=== PATIENT | female | born 1965 | race Caucasian/White ===

== ENCOUNTER 2016-11-08 18:31 | Inpatient (IN) | payer MEDICARE, MEDICAID ==
[~2016-11-08] VITALS: Ht 160 cm; Wt 92.1 kg
[~2016-11-08 18:31] MED LIST: TRIL4 PO
[2016-11-08] MEDS ORDERED: QUEtiapine FUMARATE 100 MG TABLET PO PRN (19:00)
[2016-11-08] MEDS ORDERED: INFLUENZA VIRUS VACCINE QVS 2016-17 (3YR+)/PF 60 MCG/0.5 ML SYRINGE IM ONE (19:30)
[2016-11-08 20:00] VITALS: BP 141/82
[2016-11-08 20:18] VITALS: BP 126/83
[2016-11-08] MEDS: PERPHENAZINE 4 MG TABLET PO SCH (20:34)
[2016-11-08] MEDS: ZOLPIDEM TARTRATE 5 MG TABLET PO PRN (20:34)
[2016-11-08] MEDS: TraZODone HCL 100 MG TABLET PO SCH (21:37)
[2016-11-09 00:15] VITALS: BP 110/62
[2016-11-09 08:02] VITALS: BP 113/63
[2016-11-09] MEDS ORDERED: LOPERAMIDE HCL 2 MG CAPSULE PO PRN (08:15)
[2016-11-09] MEDS ORDERED: MAG HYDROX/AL HYDROX/SIMETH ES 30 ML SUSPENSION UDCUP PO PRN (08:15)
[2016-11-09] MEDS ORDERED: ACETAMINOPHEN 325 MG TABLET PO PRN (08:15)
[2016-11-09] MEDS ORDERED: ONDANSETRON HCL 4 MG TABLET PO PRN (08:15)
[2016-11-09] MEDS ORDERED: BACITRACIN 28.4 GM OINTMENT TP PRN (08:15)
[2016-11-09] MEDS ORDERED: BENZOCAINE/MENTHOL LOZENGE MM PRN (08:15)
[2016-11-09] MEDS ORDERED: MAGNESIUM HYDROXIDE SUSPENSION 30 ML UDCUP PO PRN (08:15)
[2016-11-09] MEDS ORDERED: PETROLATUM,WHITE 71 GM JELLY TP PRN (08:15)
[2016-11-09] MEDS ORDERED: CloNIDine HCL 0.1 MG TABLET PO PRN (08:15)
[2016-11-09] MEDS ORDERED: ALBUTEROL SULFATE HFA 90 MCG/PUFF 8 GM INHALER IH PRN (08:15)
[2016-11-09] MEDS: NICOTINE 21 MG/24 HOUR PATCH TD SCH (08:27)
[2016-11-09] MEDS: PERPHENAZINE 4 MG TABLET PO SCH (08:27)
[2016-11-09 09:00] LABS: BASOPHILS # (AUTO) 0.05 K/uL (0.00-0.20); BASOPHILS % (AUTO) 0.4 % (0.0-2.0); EOSINOPHILS # (AUTO) 0.42 K/uL (0.00-0.70); EOSINOPHILS % (AUTO) 3.87 % (1.0-6.0); HEMOGLOBIN 12.4 g/dL (12.0-16.0); LYMPHOCYTES # (AUTO) 3.4 K/uL (1.0-4.8); LYMPHOCYTES % (AUTO) 31.2 % (22.0-44.0); MEAN CORPUSCULAR HEMOGLOBIN 19.1 pg (26.0-34.0); MEAN CORPUSCULAR HGB CONC 31.7 G/dL (31.0-37.0); MEAN CORPUSCULAR VOLUME 60 fL (80-100); MONOCYTES # (AUTO) 0.8 K/uL (0.1-1.0); MONOCYTES % (AUTO) 6.9 % (2.0-9.0); NEUTROPHILS # (AUTO) 6.3 K/uL (1.8-7.7); NEUTROPHILS % (AUTO) 57.7 % (40.0-70.0); PLATELET COUNT (AUTO) 215 K/uL (150-450); RED BLOOD CELL COUNT(AUTO) 6.47 MIL/uL (4.00-5.20); RED CELL DISTRIBUTION WIDTH 16.1 % (11.5-14.5)
[2016-11-09 09:05] LABS: HEMOGLOBIN A1C 5.8 % (4.5-6.2)
[2016-11-09 09:39] LABS: ALANINE AMINOTRANSFERASE 25 U/L (12-78); ALBUMIN 4.2 g/dL (3.4-5.0); ANION GAP 9 mmol/L (8-16); ASPARTATE AMINOTRANSFERASE 13 U/L (15-37); BILIRUBIN,TOTAL 0.6 mg/dL (0.1-1.0); CARBON DIOXIDE 29 mmol/L (22-29); CHLORIDE 106 mmol/L (98-107); CHOL/HDL RATIO 4.4 (3.9-5.7); GLOMERULAR FILTR. RATE CALC > 60 mL/min (>60); POTASSIUM 4.6 mmol/L (3.5-5.1); SODIUM SERUM 144 mmol/L (136-145); THYROID STIMULATING HORMONE 1.21 uIU/mL (0.36-3.74); TOTAL PROTEIN, SERUM 6.4 g/dL (6.4-8.2); UREA NITROGEN, BLOOD 12 mg/dL (7-18)
[2016-11-09 09:52] LABS: RBC MORPHOLOGY COMMENT ABNORMAL RBC MORPH
[2016-11-09 16:17] VITALS: BP 113/75
[2016-11-09] MEDS: LORazepam 1 MG TABLET PO PRN (16:38)
[2016-11-09] MEDS: TraZODone HCL 100 MG TABLET PO SCH (20:17)
[2016-11-09] MEDS: PERPHENAZINE 8 MG TABLET PO SCH (20:17)
[2016-11-09] MEDS: ZOLPIDEM TARTRATE 5 MG TABLET PO PRN (20:57)
[2016-11-10 06:20] VITALS: BP 109/66
[2016-11-10] MEDS: LEVOTHYROXINE SODIUM 25 MCG TABLET PO SCH (06:30)
[2016-11-10 08:00] VITALS: BP 131/69
[2016-11-10] MEDS: FISH OIL/OMEGA-3 FATTY ACIDS 500 MG CAPSULE PO SCH (08:36)
[2016-11-10] MEDS: NICOTINE 21 MG/24 HOUR PATCH TD SCH (08:36)
[2016-11-10] MEDS: PERPHENAZINE 4 MG TABLET PO SCH (08:36)
[2016-11-10] MEDS: LORazepam 1 MG TABLET PO PRN ×2 (13:06→17:55)
[2016-11-10 16:01] VITALS: BP 126/86
[2016-11-10] MEDS: ZOLPIDEM TARTRATE 5 MG TABLET PO PRN (21:23)
[2016-11-10] MEDS: PERPHENAZINE 8 MG TABLET PO SCH (21:23)
[2016-11-10] MEDS: TraZODone HCL 100 MG TABLET PO SCH (21:23)
[2016-11-11 03:30] VITALS: BP 106/69
[2016-11-11] MEDS: IBUPROFEN 600 MG TABLET PO PRN ×2 (03:33→09:50)
[2016-11-11] MEDS: LEVOTHYROXINE SODIUM 25 MCG TABLET PO SCH (06:30)
[2016-11-11 08:34] VITALS: BP 124/81
[2016-11-11] MEDS: PERPHENAZINE 4 MG TABLET PO SCH (09:05)
[2016-11-11] MEDS: FISH OIL/OMEGA-3 FATTY ACIDS 500 MG CAPSULE PO SCH (09:05)
[2016-11-11] MEDS: NICOTINE 21 MG/24 HOUR PATCH TD SCH (09:05)
[2016-11-11] MEDS ORDERED: TRAZ-147 PO (09:18)
[2016-11-11] MEDS ORDERED: OMEG-12 PO (09:18)
[2016-11-11] MEDS ORDERED: LEVO25TA4 PO (09:18)
[2016-11-11] MEDS ORDERED: TRIL8 PO (09:18)
== END 2016-11-11 12:00 | disposition home or self-care (01) | DRG 885 ==
LOC: B2S 19:00 → EDSTATUS 19:02 → B2S 21:15
PROVIDERS: ADMIT Psychiatry & Neurology Psychiatry; ATTEND Psychiatry & Neurology Psychiatry
DX: F20.0 Paranoid schizophrenia (principal); R45.851 Suicidal ideations; R45.850 Homicidal ideations; E03.9 Hypothyroidism, unspecified; E66.9 Obesity, unspecified; J44.9 Chronic obstructive pulmonary disease, unspecified; E78.5 Hyperlipidemia, unspecified; F32.9 Major depressive disorder, single episode, unspecified; K59.00 Constipation, unspecified; G47.00 Insomnia, unspecified; F10.10 Alcohol abuse, uncomplicated; F17.210 Nicotine dependence, cigarettes, uncomplicated; Z78.0 Asymptomatic menopausal state; Z91.14 Patient's other noncompliance with medication regimen; Z28.21 Immunization not carried out because of patient refusal; Z68.36 Body mass index [BMI] 36.0-36.9, adult; Z88.0 Allergy status to penicillin; Z71.6 Tobacco abuse counseling
CPT/HCPCS: 83036; 84439; 84443

== ENCOUNTER 2017-03-21 09:15 | Emergency (ER) | payer MEDICARE, OTHER ==
[~2017-03-21] VITALS: Ht 160 cm; Wt 86.3 kg
[~2017-03-21 09:15] MED LIST changes: +LEVO25TA4 PO; +OMEG-12 PO; +TRAZ-147 PO; +TRIL8 PO
[2017-03-21 09:27] LABS: GLUCOSE,POINT OF CARE 111 MG/DL (70-110)
[2017-03-21 10:37] LABS: BASOPHILS # (AUTO) 0.06 K/uL (0.00-0.20); BASOPHILS % (AUTO) 0.6 % (0.0-2.0); EOSINOPHILS % (AUTO) 1.92 % (1.0-6.0); HEMOGLOBIN 11.9 g/dL (12.0-16.0); LYMPHOCYTES # (AUTO) 2.5 K/uL (1.0-4.8); LYMPHOCYTES % (AUTO) 24.3 % (22.0-44.0); MEAN CORPUSCULAR HEMOGLOBIN 19.5 pg (26.0-34.0); MEAN CORPUSCULAR HGB CONC 31.5 G/dL (31.0-37.0); MEAN CORPUSCULAR VOLUME 62 fL (80-100); MONOCYTES # (AUTO) 0.7 K/uL (0.1-1.0); MONOCYTES % (AUTO) 6.4 % (2.0-9.0); NEUTROPHILS # (AUTO) 6.9 K/uL (1.8-7.7); NEUTROPHILS % (AUTO) 66.9 % (40.0-70.0); PLATELET COUNT (AUTO) 172 K/uL (150-450); RED BLOOD CELL COUNT(AUTO) 6.12 MIL/uL (4.00-5.20); RED CELL DISTRIBUTION WIDTH 15.2 % (11.5-14.5); WHITE BLOOD COUNT (AUTO) 10.4 K/uL (4.5-11.0)
[2017-03-21 10:49] LABS: ANION GAP 9 mmol/L (8-16); CALCIUM, TOTAL 9.1 mg/dL (8.8-10.5); CARBON DIOXIDE 27 mmol/L (22-29); CHLORIDE 107 mmol/L (98-107); CREATININE 0.78 mg/dL (0.60-1.30); GLOMERULAR FILTR. RATE CALC > 60 mL/min (>60); POTASSIUM 3.7 mmol/L (3.5-5.1); SODIUM SERUM 143 mmol/L (136-145); UREA NITROGEN, BLOOD 5 mg/dL (7-18)
[2017-03-21 10:55] LABS: ALANINE AMINOTRANSFERASE 27 U/L (12-78); ALBUMIN 4.3 g/dL (3.4-5.0); ASPARTATE AMINOTRANSFERASE 18 U/L (15-37); TOTAL PROTEIN, SERUM 6.9 g/dL (6.4-8.2)
[2017-03-21 10:57] LABS: RBC MORPHOLOGY COMMENT ABNORMAL RBC MORPH
[2017-03-21 11:40] VITALS: BP 139/88
== END 2017-03-21 11:45 | disposition home or self-care (01) ==
LOC: EEVIPCON 09:18 → EMS 09:18
DX: F25.9 Schizoaffective disorder, unspecified (principal); E03.9 Hypothyroidism, unspecified; Z88.0 Allergy status to penicillin
CPT/HCPCS: 36415; 80053; 80307; 82962; 85025; 99284; G0480

== ENCOUNTER 2017-04-21 16:54 | Emergency (ER) | payer MEDICARE, MEDICAID ==
[~2017-04-21] VITALS: Ht 160 cm; Wt 84.1 kg
[2017-04-21 17:24] VITALS: BP 138/90
== END 2017-04-21 18:26 | disposition home or self-care (01) ==
LOC: EMS 16:56
DX: F41.9 Anxiety disorder, unspecified (principal); E03.9 Hypothyroidism, unspecified; F17.210 Nicotine dependence, cigarettes, uncomplicated; Z88.0 Allergy status to penicillin
CPT/HCPCS: 99284

== ENCOUNTER 2017-06-15 14:39 | Emergency (ER) | payer MEDICARE, MEDICAID ==
[~2017-06-15] VITALS: Ht 160 cm; Wt 88.6 kg
[~2017-06-15 14:39] MED LIST changes: -LEVO25TA4 PO; -OMEG-12 PO; +PALI234D IM; +PALI6 PO; -TRAZ-147 PO; +TRAZ150 PO; -TRIL4 PO; -TRIL8 PO
[2017-06-15 14:41] VITALS: BP 140/86
== END 2017-06-15 16:25 | disposition left against medical advice (07) ==
LOC: EMS 14:47
DX: J02.9 Acute pharyngitis, unspecified (principal); Z53.21 Procedure and treatment not carried out due to patient leaving prior to being seen by health care provider

== ENCOUNTER 2017-06-19 06:49 | Emergency (ER) | payer MEDICARE, OTHER ==
[~2017-06-19] VITALS: Ht 160 cm; Wt 84.1 kg
[2017-06-19 07:28] LABS: INFLUENZA TYPE B NEGATIVE FOR TYPE B (NEGATIVE)
[2017-06-19 08:08] VITALS: BP 123/78
== END 2017-06-19 08:23 | disposition home or self-care (01) ==
LOC: EMS 06:51
DX: J06.9 Acute upper respiratory infection, unspecified (principal); B30.9 Viral conjunctivitis, unspecified; I10 Essential (primary) hypertension; E03.9 Hypothyroidism, unspecified; F17.210 Nicotine dependence, cigarettes, uncomplicated; Z88.0 Allergy status to penicillin
CPT/HCPCS: 87804; 99284; 99406

== ENCOUNTER 2017-12-09 18:26 | Emergency (ER) | payer MEDICARE, MEDICAID ==
[~2017-12-09] VITALS: Ht 160 cm; Wt 86.4 kg
[2017-12-09 18:29] VITALS: BP 148/85
[2017-12-09 18:38] LABS: GLUCOSE,POINT OF CARE 137 MG/DL (70-110)
== END 2017-12-09 19:55 | disposition left against medical advice (07) ==
LOC: EMS 18:28
DX: T40.991A Poisoning by other psychodysleptics [hallucinogens], accidental (unintentional), initial encounter (principal); E03.9 Hypothyroidism, unspecified; F17.210 Nicotine dependence, cigarettes, uncomplicated; Z53.21 Procedure and treatment not carried out due to patient leaving prior to being seen by health care provider; Y92.098 Other place in other non-institutional residence as the place of occurrence of the external cause
CPT/HCPCS: 82962

== ENCOUNTER 2017-12-16 20:17 | Emergency (ER) | payer MEDICARE, OTHER ==
[~2017-12-16] VITALS: Ht 160 cm; Wt 81.8 kg
[~2017-12-16 20:17] MED LIST changes: -PALI6 PO
[2017-12-16 20:22] VITALS: BP 118/76
[2017-12-16] MEDS ORDERED: BUSP5TAB20 PO (20:27)
[2017-12-16] MEDS ORDERED: LEVO88TA7 PO (20:27)
[2017-12-16 21:05] LABS: BASOPHILS % (AUTO) 1.1 % (0.0-2.0); EOSINOPHILS % (AUTO) 1.6 % (1.0-6.0); HEMATOCRIT 38.5 % (36-46); HEMOGLOBIN 12.4 g/dL (12.0-16.0); LYMPHOCYTES # (AUTO) 3.2 K/uL (1.0-4.8); LYMPHOCYTES % (AUTO) 24.8 % (22.0-44.0); MEAN CORPUSCULAR HEMOGLOBIN 18.8 pg (26.0-34.0); MEAN CORPUSCULAR HGB CONC 32.2 G/dL (31.0-37.0); MEAN CORPUSCULAR VOLUME 58 fL (80-100); NEUTROPHILS # (AUTO) 8.4 K/uL (1.8-7.7); NEUTROPHILS % (AUTO) 64.5 % (40.0-70.0); PLATELET COUNT (AUTO) 231 K/uL (150-450); RED BLOOD CELL COUNT(AUTO) 6.59 MIL/uL (4.00-5.20); RED CELL DISTRIBUTION WIDTH 16.3 % (11.5-14.5)
[2017-12-16] MEDS ORDERED: HALOPERIDOL 5 MG TABLET PO ONE (21:15)
[2017-12-16 21:19] LABS: AMPHET/METH SCREEN,URINE NEGATIVE (NEGATIVE); BARBITURATE SCREEN, URINE NEGATIVE (NEGATIVE); BENZODIAZEPINES SCREEN,URINE NEGATIVE (NEGATIVE); CANNABINOID SCREEN,URINE NEGATIVE (NEGATIVE); COCAINE SCREEN,URINE NEGATIVE (NEGATIVE); METHADONE SCREEN, URINE NEGATIVE (NEGATIVE); OPIATE SCREEN,URINE NEGATIVE (NEGATIVE)
[2017-12-16 21:21] LABS: PHENCYCLIDINE SCREEN,URINE NEGATIVE (NEGATIVE)
[2017-12-16 21:41] LABS: ANION GAP 7 mmol/L (8-16); CALCIUM, TOTAL 9.1 mg/dL (8.8-10.5); CARBON DIOXIDE 30 mmol/L (22-29); CHLORIDE 105 mmol/L (98-107); CREATININE 0.79 mg/dL (0.60-1.30); GLOMERULAR FILTR. RATE CALC > 60 mL/min (>60); GLUCOSE,RANDOM 122 mg/dL (70-110); SODIUM SERUM 142 mmol/L (136-145); UREA NITROGEN, BLOOD 9 mg/dL (7-18)
[2017-12-16 21:48] LABS: ALANINE AMINOTRANSFERASE 54 U/L (12-78); ALBUMIN 4.6 g/dL (3.4-5.0); ALKALINE PHOSPHATASE 94 U/L (46-116); ASPARTATE AMINOTRANSFERASE 25 U/L (15-37); BILIRUBIN,TOTAL 0.7 mg/dL (0.1-1.0); TOTAL PROTEIN, SERUM 7.3 g/dL (6.4-8.2)
== END 2017-12-16 21:59 | disposition home or self-care (01) ==
LOC: EMS 20:20
DX: F20.9 Schizophrenia, unspecified (principal); F41.9 Anxiety disorder, unspecified; E03.9 Hypothyroidism, unspecified; F17.210 Nicotine dependence, cigarettes, uncomplicated; Z88.0 Allergy status to penicillin
CPT/HCPCS: 36415; 80053; 80307; 85025; 99284; G0480

== ENCOUNTER 2018-01-01 14:32 | Inpatient (IN) | payer MEDICARE, MEDICAID ==
[~2018-01-01] VITALS: Ht 160 cm; Wt 87.5 kg
[~2018-01-01 14:32] MED LIST changes: +BUSP5TAB20 PO; +LEVO88TA7 PO; -PALI234D IM; -TRAZ150 PO
[2018-01-01 15:02] LABS: BASOPHILS % (AUTO) 0.8 % (0.0-2.0); EOSINOPHILS % (AUTO) 0.9 % (1.0-6.0); HEMATOCRIT 40.2 % (36-46); HEMOGLOBIN 13.2 g/dL (12.0-16.0); LYMPHOCYTES # (AUTO) 2.7 K/uL (1.0-4.8); LYMPHOCYTES % (AUTO) 19.9 % (22.0-44.0); MEAN CORPUSCULAR HEMOGLOBIN 19.1 pg (26.0-34.0); MEAN CORPUSCULAR HGB CONC 32.8 G/dL (31.0-37.0); MEAN CORPUSCULAR VOLUME 58 fL (80-100); MONOCYTES # (AUTO) 0.9 K/uL (0.1-1.0); MONOCYTES % (AUTO) 6.9 % (2.0-9.0); NEUTROPHILS # (AUTO) 9.6 K/uL (1.8-7.7); NEUTROPHILS % (AUTO) 71.5 % (40.0-70.0); PLATELET COUNT (AUTO) 234 K/uL (150-450); RED BLOOD CELL COUNT(AUTO) 6.89 MIL/uL (4.00-5.20); RED CELL DISTRIBUTION WIDTH 16.4 % (11.5-14.5)
[2018-01-01 15:14] LABS: ANION GAP 10 mmol/L (8-16); CALCIUM, TOTAL 9.4 mg/dL (8.8-10.5); CARBON DIOXIDE 28 mmol/L (22-29); CHLORIDE 102 mmol/L (98-107); CREATININE 0.87 mg/dL (0.60-1.30); GLOMERULAR FILTR. RATE CALC > 60 mL/min (>60); GLUCOSE,RANDOM 132 mg/dL (70-110); POTASSIUM 4.1 mmol/L (3.5-5.1); SODIUM SERUM 140 mmol/L (136-145); UREA NITROGEN, BLOOD 11 mg/dL (7-18)
[2018-01-01 15:19] LABS: ALANINE AMINOTRANSFERASE 63 U/L (12-78); ALBUMIN 4.8 g/dL (3.4-5.0); ALKALINE PHOSPHATASE 97 U/L (46-116); ASPARTATE AMINOTRANSFERASE 30 U/L (15-37); BILIRUBIN,TOTAL 1.1 mg/dL (0.1-1.0); TOTAL PROTEIN, SERUM 7.7 g/dL (6.4-8.2)
[2018-01-01 15:23] LABS: PLATELET MORPHOLOGY COMMENT GIANT PLTS PRESENT
[2018-01-01] MEDS ORDERED: MIRT15 PO (15:24)
[2018-01-01] MEDS ORDERED: TRAZ-147 PO (15:24)
[2018-01-01] MEDS ORDERED: OLAN5TAB2 PO (15:24)
[2018-01-01 16:27] LABS: THYROID STIMULATING HORMONE 0.75 uIU/mL (0.36-3.74)
[2018-01-01] MEDS ORDERED: HALOPERIDOL 5 MG TABLET PO PRN (17:00)
[2018-01-01] MEDS ORDERED: ZOLPIDEM TARTRATE 10 MG TABLET PO PRN (17:00)
[2018-01-01 17:59] LABS: CHOL/HDL RATIO 3.9 (3.9-5.7); CHOLESTEROL 140 mg/dL (131-200); FREE T4 (FREE THYROXINE) 1.16 ng/dL (0.76-1.46); HDL CHOLESTEROL 36 mg/dL (40-60); LDL CHOL (CALC.) 62 mg/dL (0-130); TRIGLYCERIDES 208 mg/dL (15-150)
[2018-01-01 18:28] VITALS: BP 137/79
[2018-01-02] MEDS: LEVOTHYROXINE SODIUM 88 MCG TABLET PO SCH (06:30)
[2018-01-02 06:41] VITALS: BP 135/74
[2018-01-02 08:14] VITALS: BP 127/78
[2018-01-02] MEDS: LORazepam 2 MG TABLET PO PRN ×2 (09:18→20:44)
[2018-01-02] MEDS: OLANZapine 5 MG TABLET PO SCH ×2 (09:30→20:47)
[2018-01-02] MEDS ORDERED: CloNIDine HCL 0.1 MG TABLET PO PRN (09:45)
[2018-01-02] MEDS ORDERED: LOPERAMIDE HCL 2 MG CAPSULE PO PRN (09:45)
[2018-01-02] MEDS ORDERED: ACETAMINOPHEN 325 MG TABLET PO PRN (09:45)
[2018-01-02] MEDS ORDERED: PETROLATUM,WHITE 71 GM JELLY TP PRN (09:45)
[2018-01-02] MEDS ORDERED: IBUPROFEN 600 MG TABLET PO PRN (09:45)
[2018-01-02] MEDS ORDERED: BACITRACIN 28.4 GM OINTMENT TP PRN (09:45)
[2018-01-02] MEDS ORDERED: BENZOCAINE/MENTHOL LOZENGE MM PRN (09:45)
[2018-01-02] MEDS ORDERED: ONDANSETRON HCL 4 MG TABLET PO PRN (09:45)
[2018-01-02] MEDS ORDERED: ALBUTEROL SULFATE HFA 90 MCG/PUFF 8 GM INHALER IH PRN (09:45)
[2018-01-02] MEDS ORDERED: MAG HYDROX/AL HYDROX/SIMETH ES 30 ML SUSPENSION UDCUP PO PRN (09:45)
[2018-01-02] MEDS ORDERED: MAGNESIUM HYDROXIDE SUSPENSION 30 ML UDCUP PO PRN (09:45)
[2018-01-02] MEDS: TraZODone HCL 100 MG TABLET PO SCH ×2 (13:00→17:00)
[2018-01-02 16:15] VITALS: BP 132/88
[2018-01-02] MEDS: MIRTAZAPINE 15 MG TABLET PO SCH (20:47)
[2018-01-03 04:12] VITALS: BP 123/76
[2018-01-03] MEDS: LEVOTHYROXINE SODIUM 88 MCG TABLET PO SCH (06:30)
[2018-01-03 08:17] VITALS: BP 121/68
[2018-01-03 08:40] LABS: % IRON SATURATION 21.3 % (22-44)
[2018-01-03] MEDS: OMEGA-3/DHA/EPA/FISH OIL 1,000 MG CAPSULE PO SCH (09:00)
[2018-01-03] MEDS: DOCUSATE SODIUM 100 MG CAPSULE PO SCH (09:00)
[2018-01-03] MEDS: TraZODone HCL 100 MG TABLET PO SCH ×3 (09:00→17:00)
[2018-01-03] MEDS: OMEPRAZOLE 20 MG CAPSULE PO SCH (09:00)
[2018-01-03] MEDS: OLANZapine 5 MG TABLET PO SCH ×2 (09:04→21:00)
[2018-01-03 16:33] VITALS: BP 141/76
[2018-01-03] MEDS: LORazepam 2 MG TABLET PO PRN (18:48)
[2018-01-03] MEDS: MIRTAZAPINE 15 MG TABLET PO SCH (21:00)
[2018-01-04 01:45] VITALS: BP 138/90
[2018-01-04] MEDS: LEVOTHYROXINE SODIUM 88 MCG TABLET PO SCH (06:30)
[2018-01-04] MEDS: OMEPRAZOLE 20 MG CAPSULE PO SCH (09:00)
[2018-01-04] MEDS: TraZODone HCL 100 MG TABLET PO SCH ×3 (09:00→17:00)
[2018-01-04] MEDS: DOCUSATE SODIUM 100 MG CAPSULE PO SCH (09:00)
[2018-01-04] MEDS: OMEGA-3/DHA/EPA/FISH OIL 1,000 MG CAPSULE PO SCH (09:00)
[2018-01-04] MEDS: OLANZapine 5 MG TABLET PO SCH ×2 (09:11→21:00)
[2018-01-04 16:30] VITALS: BP 146/86
[2018-01-04] MEDS: MIRTAZAPINE 15 MG TABLET PO SCH (21:12)
[2018-01-05] MEDS: LORazepam 2 MG TABLET PO PRN (01:24)
[2018-01-05 01:25] VITALS: BP 126/83
[2018-01-05] MEDS: LEVOTHYROXINE SODIUM 88 MCG TABLET PO SCH ×2 (06:06→06:18)
[2018-01-05 08:23] VITALS: BP 123/83
[2018-01-05] MEDS: OMEPRAZOLE 20 MG CAPSULE PO SCH (09:00)
[2018-01-05] MEDS: OLANZapine 5 MG TABLET PO SCH ×3 (09:00→21:00)
[2018-01-05] MEDS: DOCUSATE SODIUM 100 MG CAPSULE PO SCH (09:00)
[2018-01-05] MEDS: OMEGA-3/DHA/EPA/FISH OIL 1,000 MG CAPSULE PO SCH (09:00)
[2018-01-05] MEDS: TraZODone HCL 100 MG TABLET PO SCH ×3 (09:00→16:28)
[2018-01-05 16:05] VITALS: BP 129/84
[2018-01-05] MEDS: MIRTAZAPINE 15 MG TABLET PO SCH (21:00)
[2018-01-06 00:30] VITALS: BP 121/73
[2018-01-06] MEDS: LORazepam 2 MG TABLET PO PRN (00:32)
[2018-01-06] MEDS: LEVOTHYROXINE SODIUM 88 MCG TABLET PO SCH (06:34)
[2018-01-06] MEDS ORDERED: OLAN5TAB27 PO (08:33)
[2018-01-06] MEDS ORDERED: TRAZ-147 PO (08:33)
[2018-01-06] MEDS ORDERED: MIRT15 PO (08:33)
[2018-01-06 08:41] VITALS: BP 128/79
[2018-01-06] MEDS: TraZODone HCL 100 MG TABLET PO SCH ×2 (09:00→12:19)
[2018-01-06] MEDS ORDERED: OMEP20 PO (09:28)
[2018-01-06] MEDS ORDERED: DSS100 PO (09:28)
[2018-01-06] MEDS ORDERED: OMEG-135 PO (09:28)
[2018-01-06] MEDS: OMEPRAZOLE 20 MG CAPSULE PO SCH (09:36)
[2018-01-06] MEDS: OMEGA-3/DHA/EPA/FISH OIL 1,000 MG CAPSULE PO SCH (09:37)
[2018-01-06] MEDS: DOCUSATE SODIUM 100 MG CAPSULE PO SCH (09:37)
[2018-01-06] MEDS: OLANZapine 5 MG TABLET PO SCH (09:38)
== END 2018-01-06 13:10 | disposition home or self-care (01) | DRG 885 ==
LOC: EMS 14:34 → B3A 17:03
DX: F25.0 Schizoaffective disorder, bipolar type (principal); F79 Unspecified intellectual disabilities; D72.829 Elevated white blood cell count, unspecified; E03.9 Hypothyroidism, unspecified; J44.9 Chronic obstructive pulmonary disease, unspecified; E66.9 Obesity, unspecified; R45.1 Restlessness and agitation; F41.9 Anxiety disorder, unspecified; G47.00 Insomnia, unspecified; K21.9 Gastro-esophageal reflux disease without esophagitis; K59.00 Constipation, unspecified; F17.210 Nicotine dependence, cigarettes, uncomplicated; Z88.0 Allergy status to penicillin; Z79.899 Other long term (current) drug therapy; Z91.5 Personal history of self-harm; Z68.34 Body mass index [BMI] 34.0-34.9, adult
CPT/HCPCS: 82306; 83540; 83550; 84439; 84443; 99285; 99406; G0480

== ENCOUNTER 2018-04-02 01:35 | Inpatient (IN) | payer MEDICARE, MEDICAID ==
[~2018-04-02] VITALS: Ht 160 cm; Wt 72.7 kg
[~2018-04-02 01:35] MED LIST changes: -BUSP5TAB20 PO; +DSS100 PO; +MIRT15 PO; +OLAN5TAB27 PO; +OMEG-135 PO; +OMEP20 PO; +TRAZ-220 PO
[2018-04-02] MEDS ORDERED: CARI1.5C PO (01:51)
[2018-04-02 02:30] LABS: BASOPHILS % (AUTO) 0.8 % (0.0-2.0); EOSINOPHILS % (AUTO) 2.2 % (1.0-6.0); HEMATOCRIT 39.9 % (36-46); HEMOGLOBIN 13.1 g/dL (12.0-16.0); LYMPHOCYTES % (AUTO) 19.3 % (22.0-44.0); MEAN CORPUSCULAR HEMOGLOBIN 19.2 pg (26.0-34.0); MEAN CORPUSCULAR HGB CONC 32.9 G/dL (31.0-37.0); MEAN CORPUSCULAR VOLUME 59 fL (80-100); MONOCYTES # (AUTO) 1.1 K/uL (0.1-1.0); MONOCYTES % (AUTO) 7.1 % (2.0-9.0); NEUTROPHILS % (AUTO) 70.6 % (40.0-70.0); PLATELET COUNT (AUTO) 203 K/uL (150-450); RED BLOOD CELL COUNT(AUTO) 6.83 MIL/uL (4.00-5.20); RED CELL DISTRIBUTION WIDTH 15.5 % (11.5-14.5)
[2018-04-02 02:38] LABS: ANION GAP 9 mmol/L (8-16); CALCIUM, TOTAL 9.3 mg/dL (8.8-10.5); CARBON DIOXIDE 28 mmol/L (22-29); CHLORIDE 105 mmol/L (98-107); CREATININE 0.75 mg/dL (0.60-1.30); GLOMERULAR FILTR. RATE CALC > 60 mL/min (>60); GLUCOSE,RANDOM 113 mg/dL (70-110); POTASSIUM 3.8 mmol/L (3.5-5.1); SODIUM SERUM 142 mmol/L (136-145); UREA NITROGEN, BLOOD 8 mg/dL (7-18)
[2018-04-02 02:44] LABS: AMPHET/METH SCREEN,URINE NEGATIVE (NEGATIVE); BARBITURATE SCREEN, URINE NEGATIVE (NEGATIVE); BENZODIAZEPINES SCREEN,URINE NEGATIVE (NEGATIVE); CANNABINOID SCREEN,URINE NEGATIVE (NEGATIVE); COCAINE SCREEN,URINE NEGATIVE (NEGATIVE); METHADONE SCREEN, URINE NEGATIVE (NEGATIVE); OPIATE SCREEN,URINE NEGATIVE (NEGATIVE)
[2018-04-02 02:45] LABS: ALANINE AMINOTRANSFERASE 29 U/L (12-78); ALBUMIN 4.3 g/dL (3.4-5.0); ALKALINE PHOSPHATASE 99 U/L (46-116); ASPARTATE AMINOTRANSFERASE 16 U/L (15-37); BILIRUBIN,TOTAL 0.6 mg/dL (0.1-1.0); TOTAL PROTEIN, SERUM 6.9 g/dL (6.4-8.2)
[2018-04-02 02:53] LABS: PHENCYCLIDINE SCREEN,URINE NEGATIVE (NEGATIVE)
[2018-04-02 03:19] LABS: PLATELET MORPHOLOGY COMMENT GIANT PLTS PRESENT
[2018-04-02] MEDS ORDERED: PNEUMOCOCCAL VACCINE POLYVALENT 0.5 ML VIAL [PPSV23] IM ONE (05:30)
[2018-04-02 06:04] VITALS: BP 132/85
[2018-04-02] MEDS ORDERED: DOCUSATE SODIUM 100 MG CAPSULE PO PRN (07:00)
[2018-04-02] MEDS ORDERED: IBUPROFEN 400 MG TABLET PO PRN (07:00)
[2018-04-02] MEDS ORDERED: ALBUTEROL SULFATE HFA 90 MCG/PUFF 8 GM INHALER IH PRN (07:00)
[2018-04-02] MEDS ORDERED: LOPERAMIDE HCL 2 MG CAPSULE PO PRN (07:00)
[2018-04-02] MEDS ORDERED: PETROLATUM,WHITE 71 GM JELLY TP PRN (07:00)
[2018-04-02] MEDS ORDERED: ONDANSETRON HCL 4 MG TABLET PO PRN (07:00)
[2018-04-02] MEDS ORDERED: ACETAMINOPHEN 325 MG TABLET PO PRN (07:00)
[2018-04-02] MEDS ORDERED: MAGNESIUM HYDROXIDE SUSPENSION 30 ML UDCUP PO PRN (07:00)
[2018-04-02] MEDS ORDERED: CloNIDine HCL 0.1 MG TABLET PO PRN (07:00)
[2018-04-02] MEDS ORDERED: MAG HYDROX/AL HYDROX/SIMETH ES 30 ML SUSPENSION UDCUP PO PRN (07:00)
[2018-04-02 08:24] VITALS: BP 121/72
[2018-04-02] MEDS: NICOTINE 14 MG/24 HOUR PATCH TD SCH (09:00)
[2018-04-02 16:00] VITALS: BP 138/73
[2018-04-02] MEDS: OLANZapine 7.5 MG TABLET PO SCH (16:33)
[2018-04-02] MEDS: MIRTAZAPINE 30 MG TABLET PO SCH (20:31)
[2018-04-02] MEDS ORDERED: TraZODone HCL 100 MG TABLET PO SCH (21:00)
[2018-04-03 01:53] VITALS: BP 124/83
[2018-04-03 08:08] VITALS: BP 114/66
[2018-04-03 08:28] LABS: HEMOGLOBIN A1C 5.7 % (4.5-6.2)
[2018-04-03] MEDS: OLANZapine 7.5 MG TABLET PO SCH ×2 (08:39→16:32)
[2018-04-03] MEDS: NICOTINE 14 MG/24 HOUR PATCH TD SCH (08:40)
[2018-04-03 08:50] LABS: CHOL/HDL RATIO 4.3 (3.9-5.7); FREE T4 (FREE THYROXINE) 1.06 ng/dL (0.76-1.46); THYROID STIMULATING HORMONE 1.21 uIU/mL (0.36-3.74)
[2018-04-03] MEDS ORDERED: DiphenhydrAMINE HCL 50 MG/ML VIAL IM ONE (10:45)
[2018-04-03] MEDS ORDERED: LORazepam 2 MG/ML VIAL IM ONE (10:45)
[2018-04-03] MEDS ORDERED: HALOPERIDOL LACTATE 5 MG/ML VIAL IM ONE (10:45)
[2018-04-03] MEDS ORDERED: HALOPERIDOL LACTATE 5 MG/ML VIAL ONE (10:47)
[2018-04-03] MEDS ORDERED: DiphenhydrAMINE HCL 50 MG/ML VIAL ONE (10:47)
[2018-04-03 11:45] VITALS: BP 116/71
[2018-04-03 16:45] VITALS: BP 104/64
[2018-04-03] MEDS: MIRTAZAPINE 30 MG TABLET PO SCH (20:51)
[2018-04-03] MEDS: TraZODone HCL 50 MG TABLET PO SCH (20:51)
[2018-04-04 06:09] VITALS: BP 120/79
[2018-04-04] MEDS: OLANZapine 7.5 MG TABLET PO SCH ×2 (08:18→16:32)
[2018-04-04] MEDS: NICOTINE 14 MG/24 HOUR PATCH TD SCH (08:21)
[2018-04-04 08:26] VITALS: BP 122/78
[2018-04-04] MEDS: HALOPERIDOL 5 MG TABLET PO PRN (11:19)
[2018-04-04] MEDS: LORazepam 2 MG TABLET PO PRN (11:19)
[2018-04-04 16:19] VITALS: BP 102/60
[2018-04-04] MEDS: MIRTAZAPINE 30 MG TABLET PO SCH (20:30)
[2018-04-04] MEDS: TraZODone HCL 50 MG TABLET PO SCH (20:30)
[2018-04-05 05:57] VITALS: BP 131/77
[2018-04-05 08:12] VITALS: BP 110/68
[2018-04-05] MEDS: NICOTINE 14 MG/24 HOUR PATCH TD SCH (09:00)
[2018-04-05] MEDS: OLANZapine 7.5 MG TABLET PO SCH (09:18)
[2018-04-05 16:13] VITALS: BP 136/76
[2018-04-05] MEDS: OLANZapine 10 MG TABLET PO SCH (17:09)
[2018-04-05] MEDS: LORazepam 2 MG TABLET PO PRN (17:14)
[2018-04-05] MEDS: HALOPERIDOL 5 MG TABLET PO PRN (20:25)
[2018-04-05] MEDS: MIRTAZAPINE 30 MG TABLET PO SCH (20:25)
[2018-04-05] MEDS: TraZODone HCL 50 MG TABLET PO SCH (20:25)
[2018-04-05] MEDS: ZOLPIDEM TARTRATE 10 MG TABLET PO PRN (20:25)
[2018-04-06 05:22] VITALS: BP 138/85
[2018-04-06 08:00] VITALS: BP 125/67
[2018-04-06] MEDS: OLANZapine 10 MG TABLET PO SCH ×2 (08:13→17:00)
[2018-04-06] MEDS: NICOTINE 14 MG/24 HOUR PATCH TD SCH (08:19)
[2018-04-06 16:05] VITALS: BP 108/66
[2018-04-06] MEDS: TraZODone HCL 50 MG TABLET PO SCH (20:47)
[2018-04-06] MEDS: MIRTAZAPINE 30 MG TABLET PO SCH (20:47)
[2018-04-07] MEDS: ZOLPIDEM TARTRATE 10 MG TABLET PO PRN (00:07)
[2018-04-07 06:27] VITALS: BP 114/80
[2018-04-07 08:19] VITALS: BP 119/66
[2018-04-07] MEDS: OLANZapine 10 MG TABLET PO SCH (08:19)
[2018-04-07] MEDS: NICOTINE 14 MG/24 HOUR PATCH TD SCH (08:21)
[2018-04-07 08:53] LABS: BASOPHILS % (AUTO) 0.6 % (0.0-2.0); EOSINOPHILS % (AUTO) 2.4 % (1.0-6.0); HEMATOCRIT 40.9 % (36-46); LYMPHOCYTES # (AUTO) 3.1 K/uL (1.0-4.8); LYMPHOCYTES % (AUTO) 26.8 % (22.0-44.0); MEAN CORPUSCULAR HGB CONC 31.9 G/dL (31.0-37.0); MEAN CORPUSCULAR VOLUME 60 fL (80-100); MONOCYTES # (AUTO) 0.9 K/uL (0.1-1.0); MONOCYTES % (AUTO) 7.5 % (2.0-9.0); NEUTROPHILS # (AUTO) 7.3 K/uL (1.8-7.7); NEUTROPHILS % (AUTO) 62.7 % (40.0-70.0); PLATELET COUNT (AUTO) 209 K/uL (150-450); RED BLOOD CELL COUNT(AUTO) 6.85 MIL/uL (4.00-5.20); RED CELL DISTRIBUTION WIDTH 15.8 % (11.5-14.5)
[2018-04-07 09:31] LABS: ANION GAP 8 mmol/L (8-16); CALCIUM, TOTAL 9.3 mg/dL (8.8-10.5); CARBON DIOXIDE 29 mmol/L (22-29); CHLORIDE 106 mmol/L (98-107); CREATININE 0.61 mg/dL (0.60-1.30); GLOMERULAR FILTR. RATE CALC > 60 mL/min (>60); GLUCOSE,RANDOM 95 mg/dL (70-110); POTASSIUM 4.5 mmol/L (3.5-5.1); SODIUM SERUM 143 mmol/L (136-145); UREA NITROGEN, BLOOD 13 mg/dL (7-18)
[2018-04-07] MEDS: LORazepam 2 MG TABLET PO PRN ×2 (13:27→17:59)
[2018-04-07 16:09] VITALS: BP 118/80
[2018-04-07] MEDS: ZIPRASIDONE HCL 40 MG CAPSULE PO SCH (16:32)
[2018-04-07] MEDS: TraZODone HCL 50 MG TABLET PO SCH (20:35)
[2018-04-07] MEDS: MIRTAZAPINE 30 MG TABLET PO SCH (20:35)
[2018-04-08] MEDS: ZIPRASIDONE HCL 40 MG CAPSULE PO SCH ×2 (06:13→16:54)
[2018-04-08 06:32] VITALS: BP 122/82
[2018-04-08 08:21] VITALS: BP 117/69
[2018-04-08] MEDS: NICOTINE 14 MG/24 HOUR PATCH TD SCH (09:00)
[2018-04-08 16:05] VITALS: BP 100/67
[2018-04-08] MEDS: TraZODone HCL 50 MG TABLET PO SCH (20:09)
[2018-04-08] MEDS: MIRTAZAPINE 30 MG TABLET PO SCH (20:09)
[2018-04-09 03:10] VITALS: BP 122/84
[2018-04-09] MEDS: LORazepam 2 MG TABLET PO PRN ×2 (03:16→13:51)
[2018-04-09] MEDS: ZIPRASIDONE HCL 40 MG CAPSULE PO SCH ×2 (06:58→17:00)
[2018-04-09 08:22] VITALS: BP 109/66
[2018-04-09] MEDS: NICOTINE 14 MG/24 HOUR PATCH TD SCH (09:00)
[2018-04-09] MEDS ORDERED: LORazepam 2 MG/ML VIAL ONE (14:18)
[2018-04-09] MEDS ORDERED: HALOPERIDOL LACTATE 5 MG/ML VIAL ONE (14:19)
[2018-04-09] MEDS ORDERED: DiphenhydrAMINE HCL 50 MG/ML VIAL ONE (14:19)
[2018-04-09] MEDS ORDERED: LORazepam 2 MG/ML VIAL IM ONE (14:30)
[2018-04-09] MEDS ORDERED: HALOPERIDOL LACTATE 5 MG/ML VIAL IM ONE (14:30)
[2018-04-09] MEDS ORDERED: DiphenhydrAMINE HCL 50 MG/ML VIAL IM ONE (14:30)
[2018-04-09 15:00] VITALS: BP 120/80
[2018-04-09] MEDS: TraZODone HCL 50 MG TABLET PO SCH (20:19)
[2018-04-09] MEDS: MIRTAZAPINE 30 MG TABLET PO SCH (20:24)
[2018-04-10 02:30] VITALS: BP 105/69
[2018-04-10] MEDS: ZIPRASIDONE HCL 40 MG CAPSULE PO SCH ×2 (07:08→16:31)
[2018-04-10 08:12] LABS: BASOPHILS % (AUTO) 0.8 % (0.0-2.0); HEMATOCRIT 40.8 % (36-46); HEMOGLOBIN 12.9 g/dL (12.0-16.0); LYMPHOCYTES # (AUTO) 3.3 K/uL (1.0-4.8); LYMPHOCYTES % (AUTO) 27.3 % (22.0-44.0); MEAN CORPUSCULAR HGB CONC 31.6 G/dL (31.0-37.0); MEAN CORPUSCULAR VOLUME 60 fL (80-100); MONOCYTES % (AUTO) 7.9 % (2.0-9.0); NEUTROPHILS # (AUTO) 7.4 K/uL (1.8-7.7); PLATELET COUNT (AUTO) 194 K/uL (150-450); RED CELL DISTRIBUTION WIDTH 15.9 % (11.5-14.5)
[2018-04-10 08:41] VITALS: BP 103/59
[2018-04-10] MEDS: LORazepam 2 MG TABLET PO PRN ×2 (09:33→16:50)
[2018-04-10] MEDS: NICOTINE 14 MG/24 HOUR PATCH TD SCH (09:33)
[2018-04-10 16:12] VITALS: BP 132/80
[2018-04-10] MEDS: TraZODone HCL 50 MG TABLET PO SCH (20:41)
[2018-04-10] MEDS: MIRTAZAPINE 30 MG TABLET PO SCH (20:41)
[2018-04-11] MEDS: ZIPRASIDONE HCL 40 MG CAPSULE PO SCH ×2 (06:07→17:03)
[2018-04-11 06:44] VITALS: BP 120/79
[2018-04-11 08:11] VITALS: BP 115/65
[2018-04-11] MEDS: NICOTINE 14 MG/24 HOUR PATCH TD SCH (09:00)
[2018-04-11 16:03] VITALS: BP 121/64
[2018-04-11] MEDS: MIRTAZAPINE 30 MG TABLET PO SCH (20:30)
[2018-04-11] MEDS: TraZODone HCL 50 MG TABLET PO SCH (20:30)
[2018-04-12 02:56] VITALS: BP 137/82
[2018-04-12] MEDS: ZIPRASIDONE HCL 40 MG CAPSULE PO SCH (06:04)
[2018-04-12] MEDS: NICOTINE 14 MG/24 HOUR PATCH TD SCH (08:10)
[2018-04-12 08:30] VITALS: BP 122/74
[2018-04-12 08:31] LABS: BASOPHILS % (AUTO) 0.9 % (0.0-2.0); EOSINOPHILS % (AUTO) 3.5 % (1.0-6.0); HEMATOCRIT 40.3 % (36-46); HEMOGLOBIN 12.8 g/dL (12.0-16.0); LYMPHOCYTES # (AUTO) 3.3 K/uL (1.0-4.8); LYMPHOCYTES % (AUTO) 30.1 % (22.0-44.0); MEAN CORPUSCULAR HEMOGLOBIN 19.1 pg (26.0-34.0); MEAN CORPUSCULAR HGB CONC 31.7 G/dL (31.0-37.0); MEAN CORPUSCULAR VOLUME 60 fL (80-100); MONOCYTES # (AUTO) 0.8 K/uL (0.1-1.0); MONOCYTES % (AUTO) 6.9 % (2.0-9.0); NEUTROPHILS # (AUTO) 6.4 K/uL (1.8-7.7); NEUTROPHILS % (AUTO) 58.6 % (40.0-70.0); PLATELET COUNT (AUTO) 201 K/uL (150-450); RED BLOOD CELL COUNT(AUTO) 6.69 MIL/uL (4.00-5.20); RED CELL DISTRIBUTION WIDTH 15.4 % (11.5-14.5)
[2018-04-12 09:20] LABS: PLATELET MORPHOLOGY COMMENT LARGE PLTS PRESENT
[2018-04-12 16:03] VITALS: BP 138/79
[2018-04-12] MEDS: ZIPRASIDONE HCL 60 MG CAPSULE PO SCH (16:33)
[2018-04-12] MEDS: LORazepam 2 MG TABLET PO PRN (17:23)
[2018-04-12] MEDS: MIRTAZAPINE 30 MG TABLET PO SCH (20:40)
[2018-04-12] MEDS: TraZODone HCL 50 MG TABLET PO SCH (20:40)
[2018-04-13 02:30] VITALS: BP 122/72
[2018-04-13] MEDS: ZIPRASIDONE HCL 60 MG CAPSULE PO SCH ×3 (06:49→16:52)
[2018-04-13 08:07] VITALS: BP 145/64
[2018-04-13] MEDS: NICOTINE 14 MG/24 HOUR PATCH TD SCH (08:47)
[2018-04-13 16:01] VITALS: BP 130/72
[2018-04-13] MEDS: LORazepam 2 MG TABLET PO PRN (18:49)
[2018-04-13] MEDS: TraZODone HCL 50 MG TABLET PO SCH (20:37)
[2018-04-13] MEDS: ZOLPIDEM TARTRATE 10 MG TABLET PO PRN (23:00)
[2018-04-14 08:22] VITALS: BP 100/60
[2018-04-14] MEDS ORDERED: OLANZapine 5 MG TABLET PO SCH (09:00)
[2018-04-14] MEDS: NICOTINE 14 MG/24 HOUR PATCH TD SCH (09:00)
[2018-04-14] MEDS: LORazepam 2 MG TABLET PO PRN (12:19)
[2018-04-14 16:03] VITALS: BP 120/78
[2018-04-14] MEDS: OLANZapine 10 MG TABLET PO SCH (16:59)
[2018-04-14] MEDS ORDERED: OLANZapine 10 MG TABLET PO SCH (17:00)
[2018-04-14] MEDS: TraZODone HCL 50 MG TABLET PO SCH (20:31)
[2018-04-15 01:21] VITALS: BP 116/76
[2018-04-15 08:25] VITALS: BP 114/68
[2018-04-15] MEDS: NICOTINE 14 MG/24 HOUR PATCH TD SCH (08:38)
[2018-04-15] MEDS: OLANZapine 10 MG TABLET PO SCH (08:43)
[2018-04-15] MEDS ORDERED: OLANZapine 10 MG TABLET PO SCH (09:00)
[2018-04-15 16:11] VITALS: BP 130/76
[2018-04-15] MEDS: OLANZapine 5 MG TABLET PO SCH (16:32)
[2018-04-15] MEDS: LORazepam 2 MG TABLET PO PRN (20:18)
[2018-04-15] MEDS: TraZODone HCL 50 MG TABLET PO SCH (20:39)
[2018-04-16 00:05] VITALS: BP 112/81
[2018-04-16] MEDS: LORazepam 2 MG TABLET PO PRN (02:25)
[2018-04-16] MEDS: HALOPERIDOL 5 MG TABLET PO PRN (02:26)
[2018-04-16 08:24] VITALS: BP 104/67
[2018-04-16] MEDS: OLANZapine 5 MG TABLET PO SCH ×2 (08:50→16:04)
[2018-04-16] MEDS: NICOTINE 14 MG/24 HOUR PATCH TD SCH (08:50)
[2018-04-16 16:01] VITALS: BP 101/85
[2018-04-16] MEDS: TraZODone HCL 50 MG TABLET PO SCH (20:06)
[2018-04-16] MEDS ORDERED: TRAZ-219 PO (21:34)
[2018-04-16] MEDS ORDERED: OLAN5TAB2 PO (21:34)
[2018-04-17 05:21] VITALS: BP 122/70
[2018-04-17 08:08] VITALS: BP 111/67
[2018-04-17] MEDS: OLANZapine 5 MG TABLET PO SCH (08:30)
[2018-04-17] MEDS: NICOTINE 14 MG/24 HOUR PATCH TD SCH (08:31)
== END 2018-04-17 10:00 | disposition home or self-care (01) | DRG 885 ==
LOC: EMS 01:36 → B2X 04:00
PROVIDERS: ADMIT Psychiatry & Neurology Psychiatry; ATTEND Psychiatry & Neurology Psychiatry
DX: F25.0 Schizoaffective disorder, bipolar type (principal); R45.851 Suicidal ideations; Z28.21 Immunization not carried out because of patient refusal; Z88.0 Allergy status to penicillin; Z91.19 Patient's noncompliance with other medical treatment and regimen; Z91.5 Personal history of self-harm; K59.00 Constipation, unspecified; K21.9 Gastro-esophageal reflux disease without esophagitis; F41.9 Anxiety disorder, unspecified; F17.200 Nicotine dependence, unspecified, uncomplicated; E03.9 Hypothyroidism, unspecified; D72.829 Elevated white blood cell count, unspecified; Z71.6 Tobacco abuse counseling; F60.9 Personality disorder, unspecified; Z79.899 Other long term (current) drug therapy
CPT/HCPCS: 83036; 84439; 84443; 99285; G0480; J1200; J1630; J2060

== ENCOUNTER 2018-04-25 01:40 | Emergency (ER) | payer MEDICARE, MEDICAID ==
[~2018-04-25 01:40] MED LIST changes: -DSS100 PO; -LEVO88TA7 PO; -MIRT15 PO; +OLAN5TAB2 PO; -OLAN5TAB27 PO; -OMEG-135 PO; -OMEP20 PO; +TRAZ-219 PO; -TRAZ-220 PO
== END 2018-04-25 02:42 | disposition left against medical advice (07) ==
LOC: EMS 01:40
DX: Z00.00 Encounter for general adult medical examination without abnormal findings (principal); Z53.21 Procedure and treatment not carried out due to patient leaving prior to being seen by health care provider

== ENCOUNTER 2018-05-31 21:47 | Inpatient (IN) | payer MEDICARE, MEDICAID ==
[~2018-05-31] VITALS: Ht 160 cm; Wt 66.2 kg
[2018-06-01] MEDS ORDERED: ZOLPIDEM TARTRATE 10 MG TABLET PO PRN
[2018-06-01] MEDS ORDERED: HALOPERIDOL 5 MG TABLET PO PRN
[2018-06-01 00:05] VITALS: BP 140/75
[2018-06-01] MEDS ORDERED: PNEUMOCOCCAL VACCINE POLYVALENT 0.5 ML VIAL [PPSV23] IM ONE (00:15)
[2018-06-01] MEDS: LORazepam 2 MG TABLET PO PRN ×2 (00:30→21:36)
[2018-06-01 08:18] VITALS: BP 127/79
[2018-06-01 08:46] LABS: BASOPHILS % (AUTO) 1.1 % (0.0-2.0); EOSINOPHILS % (AUTO) 4.6 % (1.0-6.0); HEMATOCRIT 37.4 % (36-46); HEMOGLOBIN 11.8 g/dL (12.0-16.0); LYMPHOCYTES # (AUTO) 3.9 K/uL (1.0-4.8); LYMPHOCYTES % (AUTO) 36.7 % (22.0-44.0); MEAN CORPUSCULAR HEMOGLOBIN 19.4 pg (26.0-34.0); MEAN CORPUSCULAR HGB CONC 31.7 G/dL (31.0-37.0); MEAN CORPUSCULAR VOLUME 61 fL (80-100); MONOCYTES # (AUTO) 0.9 K/uL (0.1-1.0); NEUTROPHILS # (AUTO) 5.3 K/uL (1.8-7.7); NEUTROPHILS % (AUTO) 49.6 % (40.0-70.0); PLATELET COUNT (AUTO) 200 K/uL (150-450); RED BLOOD CELL COUNT(AUTO) 6.12 MIL/uL (4.00-5.20); RED CELL DISTRIBUTION WIDTH 17.2 % (11.5-14.5)
[2018-06-01 08:49] LABS: HEMOGLOBIN A1C 5.4 % (4.5-6.2)
[2018-06-01 09:22] LABS: ALANINE AMINOTRANSFERASE 20 U/L (12-78); ALBUMIN 3.6 g/dL (3.4-5.0); ALKALINE PHOSPHATASE 85 U/L (46-116); ANION GAP 7 mmol/L (8-16); ASPARTATE AMINOTRANSFERASE 12 U/L (15-37); BILIRUBIN,TOTAL 0.5 mg/dL (0.1-1.0); CALCIUM, TOTAL 8.7 mg/dL (8.8-10.5); CARBON DIOXIDE 28 mmol/L (22-29); CHLORIDE 109 mmol/L (98-107); CREATININE 0.73 mg/dL (0.60-1.30); FREE T4 (FREE THYROXINE) 0.99 ng/dL (0.76-1.46); GLOMERULAR FILTR. RATE CALC > 60 mL/min (>60); GLUCOSE,RANDOM 83 mg/dL (70-110); HDL CHOLESTEROL 34 mg/dL (40-60); POTASSIUM 3.8 mmol/L (3.5-5.1); SODIUM SERUM 144 mmol/L (136-145); THYROID STIMULATING HORMONE 1.55 uIU/mL (0.36-3.74); TRIGLYCERIDES 104 mg/dL (15-150); UREA NITROGEN, BLOOD 10 mg/dL (7-18)
[2018-06-01 09:44] LABS: CHOL/HDL RATIO 3.1 (3.9-5.7); CHOLESTEROL 105 mg/dL (131-200); LDL CHOL (CALC.) 50 mg/dL (0-130)
[2018-06-01 10:18] LABS: PLATELET MORPHOLOGY COMMENT LARGE PLTS PRESENT
[2018-06-01] MEDS ORDERED: LOPERAMIDE HCL 2 MG CAPSULE PO PRN (13:45)
[2018-06-01] MEDS ORDERED: ACETAMINOPHEN 325 MG TABLET PO PRN (13:45)
[2018-06-01] MEDS ORDERED: ALBUTEROL SULFATE HFA 90 MCG/PUFF 8 GM INHALER IH PRN (13:45)
[2018-06-01] MEDS ORDERED: PETROLATUM,WHITE 71 GM JELLY TP PRN (13:45)
[2018-06-01] MEDS ORDERED: MAG HYDROX/AL HYDROX/SIMETH ES 30 ML SUSPENSION UDCUP PO PRN (13:45)
[2018-06-01] MEDS ORDERED: CloNIDine HCL 0.1 MG TABLET PO PRN (13:45)
[2018-06-01] MEDS ORDERED: ONDANSETRON HCL 4 MG TABLET PO PRN (13:45)
[2018-06-01] MEDS ORDERED: MAGNESIUM HYDROXIDE SUSPENSION 30 ML UDCUP PO PRN (13:45)
[2018-06-01] MEDS ORDERED: GuaiFENesin/D-METHORPHAN [SUGAR-FREE] 200-20MG/10 ML SYRUP UDCUP PO PRN (13:45)
[2018-06-01] MEDS ORDERED: DOCUSATE SODIUM 100 MG CAPSULE PO PRN (13:45)
[2018-06-01] MEDS ORDERED: IBUPROFEN 400 MG TABLET PO PRN (13:45)
[2018-06-01] MEDS ORDERED: NICOTINE 14 MG/24 HOUR PATCH TD PRN (13:45)
[2018-06-01 16:05] VITALS: BP 118/82
[2018-06-01] MEDS ORDERED: TraZODone HCL 50 MG TABLET PO PRN (17:45)
[2018-06-02 06:34] VITALS: BP 108/64
[2018-06-02] MEDS: LORazepam 2 MG TABLET PO PRN ×2 (08:34→14:45)
[2018-06-02] MEDS ORDERED: OLANZapine 5 MG TABLET PO SCH (09:00)
[2018-06-02] MEDS ORDERED: ARIPiprazole 10 MG TABLET PO SCH (09:00)
[2018-06-02 09:05] VITALS: BP 126/82
[2018-06-02 09:07] VITALS: BP 128/62
[2018-06-02 16:09] VITALS: BP 121/84
[2018-06-02] MEDS: TraZODone HCL 50 MG TABLET PO SCH (20:29)
[2018-06-03] VITALS: BP 140/75
[2018-06-03] MEDS: LORazepam 2 MG TABLET PO PRN ×4 (00:07→20:41)
[2018-06-03] MEDS: ARIPiprazole 15 MG TABLET PO SCH (08:18)
[2018-06-03 08:26] VITALS: BP 138/81
[2018-06-03 16:32] VITALS: BP 120/58
[2018-06-03] MEDS: TraZODone HCL 50 MG TABLET PO SCH (20:12)
[2018-06-03 20:40] VITALS: BP 123/63
[2018-06-04 02:21] VITALS: BP 132/82
[2018-06-04] MEDS ORDERED: LORazepam 2 MG/ML VIAL ONE (05:51)
[2018-06-04 06:00] VITALS: BP 138/80
[2018-06-04] MEDS ORDERED: LORazepam 2 MG/ML VIAL IM ONE (06:00)
[2018-06-04] MEDS ORDERED: DiphenhydrAMINE HCL 50 MG/ML VIAL IM ONE (06:00)
[2018-06-04 06:30] VITALS: BP 102/65
[2018-06-04] MEDS: ARIPiprazole 15 MG TABLET PO SCH (08:36)
[2018-06-04 08:52] VITALS: BP 102/71
[2018-06-04] MEDS: TraZODone HCL 50 MG TABLET PO SCH (21:00)
[2018-06-05 00:55] VITALS: BP 120/81
[2018-06-05 08:37] VITALS: BP 102/64
[2018-06-05] MEDS: ARIPiprazole 15 MG TABLET PO SCH (08:37)
[2018-06-05] MEDS ORDERED: ARIPiprazole 5 MG TABLET PO ONE (11:00)
[2018-06-05 16:07] VITALS: BP 112/73
[2018-06-05] MEDS: TraZODone HCL 50 MG TABLET PO SCH (20:32)
[2018-06-05] MEDS: LORazepam 2 MG TABLET PO PRN (22:23)
[2018-06-06 03:57] VITALS: BP 110/70
[2018-06-06 08:33] VITALS: BP 110/68
[2018-06-06] MEDS: ARIPiprazole 15 MG TABLET PO SCH (08:56)
[2018-06-06 16:22] VITALS: BP 108/62
[2018-06-06] MEDS: LORazepam 2 MG TABLET PO PRN (17:25)
[2018-06-06] MEDS: TraZODone HCL 50 MG TABLET PO SCH (20:40)
[2018-06-07 04:20] VITALS: BP 110/68
[2018-06-07 08:16] VITALS: BP 109/75
[2018-06-07] MEDS: ARIPiprazole 15 MG TABLET PO SCH (09:13)
[2018-06-07] MEDS: FERROUS SULFATE 325 MG EC TABLET PO SCH ×2 (11:30→16:38)
[2018-06-07] MEDS ORDERED: ARIPiprazole LAUROXIL ER SUSPENSION 882 MG/3.2 ML SYRINGE IM SCH (12:00)
[2018-06-07 16:12] VITALS: BP 124/81
[2018-06-07] MEDS ORDERED: ARIP882S IM (17:01)
[2018-06-07] MEDS ORDERED: ARIP15TA2 PO (17:01)
[2018-06-07] MEDS ORDERED: TRAZ-219 PO (17:01)
== END 2018-06-07 17:35 | disposition home or self-care (01) | DRG 885 ==
LOC: B2X 23:51
PROVIDERS: ADMIT Psychiatry & Neurology Psychiatry; ATTEND Psychiatry & Neurology Psychiatry
DX: F25.0 Schizoaffective disorder, bipolar type (principal); I42.9 Cardiomyopathy, unspecified; R45.851 Suicidal ideations; D64.9 Anemia, unspecified; E03.9 Hypothyroidism, unspecified; E78.5 Hyperlipidemia, unspecified; F17.200 Nicotine dependence, unspecified, uncomplicated; F41.9 Anxiety disorder, unspecified; I10 Essential (primary) hypertension; J44.9 Chronic obstructive pulmonary disease, unspecified; F19.10 Other psychoactive substance abuse, uncomplicated; K21.9 Gastro-esophageal reflux disease without esophagitis; R45.84 Anhedonia; Z28.21 Immunization not carried out because of patient refusal; Z91.19 Patient's noncompliance with other medical treatment and regimen; Z91.5 Personal history of self-harm; Z71.6 Tobacco abuse counseling; Z71.51 Drug abuse counseling and surveillance of drug abuser; Z56.0 Unemployment, unspecified
CPT/HCPCS: 83036; 84439; 84443; J1200; J2060; J3230

== ENCOUNTER 2018-06-17 01:22 | Emergency (ER) | payer MEDICARE, OTHER ==
[~2018-06-17] VITALS: Ht 165.1 cm; Wt 59.1 kg
[~2018-06-17 01:22] MED LIST changes: +ARIP15TA2 PO; +ARIP882S IM; -OLAN5TAB2 PO
[2018-06-17 01:55] VITALS: BP 120/86
[2018-06-17] MEDS ORDERED: ONDANSETRON HCL 4 MG TABLET PO ONE (02:00)
== END 2018-06-17 02:53 | disposition home or self-care (01) ==
LOC: EMS 01:22
DX: F25.0 Schizoaffective disorder, bipolar type (principal); F17.210 Nicotine dependence, cigarettes, uncomplicated; F41.9 Anxiety disorder, unspecified; E03.9 Hypothyroidism, unspecified; Z88.0 Allergy status to penicillin; Z79.899 Other long term (current) drug therapy
CPT/HCPCS: 99284; Q0162

== ENCOUNTER 2018-06-17 12:26 | Emergency (ER) | payer MEDICARE, OTHER | END 2018-06-17 12:51 | disposition left against medical advice (07) | LOC: EMS 12:28 | DX: R10.9 Unspecified abdominal pain (principal); Z53.21 Procedure and treatment not carried out due to patient leaving prior to being seen by health care provider ==

== ENCOUNTER 2018-06-17 17:13 | Inpatient (IN) | payer MEDICARE, MEDICAID ==
[~2018-06-17] VITALS: Ht 160 cm; Wt 67.8 kg
[2018-08-15 16:52] VITALS: BP 126/91
[2018-08-15] MEDS ORDERED: QUEtiapine FUMARATE 100 MG TABLET PO PRN (17:00)
[2018-08-15] MEDS ORDERED: PERPHENAZINE 4 MG TABLET PO SCH (18:07)
[2018-08-15] MEDS ORDERED: CloNIDine HCL 0.1 MG TABLET PO PRN (18:15)
[2018-08-15] MEDS ORDERED: MAG HYDROX/AL HYDROX/SIMETH ES 30 ML SUSPENSION UDCUP PO PRN (18:15)
[2018-08-15] MEDS ORDERED: NICOTINE 14 MG/24 HOUR PATCH TD PRN (18:15)
[2018-08-15] MEDS ORDERED: GuaiFENesin/D-METHORPHAN [SUGAR-FREE] 200-20MG/10 ML SYRUP UDCUP PO PRN (18:15)
[2018-08-15] MEDS ORDERED: IBUPROFEN 400 MG TABLET PO PRN (18:15)
[2018-08-15] MEDS ORDERED: PETROLATUM,WHITE 71 GM JELLY TP PRN (18:15)
[2018-08-15] MEDS ORDERED: MAGNESIUM HYDROXIDE SUSPENSION 30 ML UDCUP PO PRN (18:15)
[2018-08-15] MEDS ORDERED: ACETAMINOPHEN 325 MG TABLET PO PRN (18:15)
[2018-08-15] MEDS ORDERED: DOCUSATE SODIUM 100 MG CAPSULE PO PRN (18:15)
[2018-08-15] MEDS ORDERED: LOPERAMIDE HCL 2 MG CAPSULE PO PRN (18:15)
[2018-08-15] MEDS ORDERED: ONDANSETRON HCL 4 MG TABLET PO PRN (18:15)
[2018-08-15] MEDS ORDERED: ALBUTEROL SULFATE HFA 90 MCG/PUFF 8 GM INHALER IH PRN (18:15)
[2018-08-15] MEDS ORDERED: PNEUMOCOCCAL VACCINE POLYVALENT 0.5 ML VIAL [PPSV23] IM ONE (18:15)
[2018-08-15] MEDS: LORazepam 1 MG TABLET PO PRN (20:40)
[2018-08-15] MEDS ORDERED: ZOLPIDEM TARTRATE 5 MG TABLET PO PRN (21:00)
[2018-08-15] MEDS: PERPHENAZINE 4 MG TABLET PO SCH (21:00)
[2018-08-15] MEDS: ZOLPIDEM TARTRATE 5 MG TABLET PO PRN (22:41)
[2018-08-16 05:05] VITALS: BP 120/81
[2018-08-16] MEDS: PERPHENAZINE 4 MG TABLET PO SCH ×3 (08:38→21:17)
[2018-08-16 08:52] LABS: BASOPHILS % (AUTO) 1.2 % (0.0-2.0); EOSINOPHILS % (AUTO) 3.6 % (1.0-6.0); HEMATOCRIT 40.2 % (36-46); HEMOGLOBIN 12.9 g/dL (12.0-16.0); LYMPHOCYTES # (AUTO) 2.7 K/uL (1.0-4.8); LYMPHOCYTES % (AUTO) 29.9 % (22.0-44.0); MEAN CORPUSCULAR HGB CONC 32.2 G/dL (31.0-37.0); MEAN CORPUSCULAR VOLUME 62 fL (80-100); MONOCYTES # (AUTO) 0.8 K/uL (0.1-1.0); NEUTROPHILS % (AUTO) 56.3 % (40.0-70.0); PLATELET COUNT (AUTO) 180 K/uL (150-450); RED BLOOD CELL COUNT(AUTO) 6.48 MIL/uL (4.00-5.20); RED CELL DISTRIBUTION WIDTH 15.7 % (11.5-14.5)
[2018-08-16 09:18] LABS: HEMOGLOBIN A1C 5.3 % (4.5-6.2)
[2018-08-16 09:32] LABS: ALANINE AMINOTRANSFERASE 23 U/L (12-78); ALBUMIN 3.7 g/dL (3.4-5.0); ALKALINE PHOSPHATASE 92 U/L (46-116); ANION GAP 6 mmol/L (8-16); ASPARTATE AMINOTRANSFERASE 16 U/L (15-37); BILIRUBIN,TOTAL 0.8 mg/dL (0.1-1.0); CALCIUM, TOTAL 8.3 mg/dL (8.8-10.5); CARBON DIOXIDE 29 mmol/L (22-29); CHLORIDE 105 mmol/L (98-107); CHOL/HDL RATIO 2.7 (3.9-5.7); CHOLESTEROL 107 mg/dL (131-200); CREATININE 0.59 mg/dL (0.60-1.30); GLOMERULAR FILTR. RATE CALC > 60 mL/min (>60); GLUCOSE,RANDOM 79 mg/dL (70-110); HDL CHOLESTEROL 39 mg/dL (40-60); LDL CHOL (CALC.) 54 mg/dL (0-130); POTASSIUM 4.2 mmol/L (3.5-5.1); SODIUM SERUM 140 mmol/L (136-145); THYROID STIMULATING HORMONE 1.35 uIU/mL (0.36-3.74); TOTAL PROTEIN, SERUM 6.1 g/dL (6.4-8.2); TRIGLYCERIDES 71 mg/dL (15-150); UREA NITROGEN, BLOOD 11 mg/dL (7-18)
[2018-08-16] MEDS ORDERED: GuaiFENesin/D-METHORPHAN [SUGAR-FREE] 200-20MG/10 ML SYRUP UDCUP PO PRN (11:45)
[2018-08-16] MEDS ORDERED: HydrOXYzine PAMOATE 50 MG CAPSULE PO PRN (11:45)
[2018-08-16 16:06] VITALS: BP 112/67
[2018-08-16] MEDS: THIAMINE HCL 100 MG TABLET PO SCH (16:54)
[2018-08-16] MEDS: LORazepam 1 MG TABLET PO PRN (17:14)
[2018-08-17 06:35] VITALS: BP 112/82
[2018-08-17] MEDS: PERPHENAZINE 4 MG TABLET PO SCH ×3 (08:09→20:22)
[2018-08-17] MEDS: THIAMINE HCL 100 MG TABLET PO SCH ×2 (08:10→16:02)
[2018-08-17] MEDS: MULTIVITAMINS WITH MINERALS, THERAPEUTIC TABLET PO SCH (08:10)
[2018-08-17] MEDS: FOLIC ACID 1 MG TABLET PO SCH ×2 (08:10→08:11)
[2018-08-17] MEDS: NALTREXONE HCL 50 MG TABLET PO SCH (08:11)
[2018-08-17 09:00] VITALS: BP 129/62
[2018-08-17] MEDS: LORazepam 1 MG TABLET PO PRN ×2 (10:40→16:01)
[2018-08-17 16:38] VITALS: BP 135/72
[2018-08-18] MEDS: LORazepam 1 MG TABLET PO PRN (00:04)
[2018-08-18] MEDS: ZOLPIDEM TARTRATE 5 MG TABLET PO PRN (00:04)
[2018-08-18 06:28] VITALS: BP 126/80
[2018-08-18 08:13] VITALS: BP 122/72
[2018-08-18] MEDS: FOLIC ACID 1 MG TABLET PO SCH ×2 (08:47→09:00)
[2018-08-18] MEDS: THIAMINE HCL 100 MG TABLET PO SCH ×2 (08:47→16:04)
[2018-08-18] MEDS: PERPHENAZINE 4 MG TABLET PO SCH ×2 (08:48→16:04)
[2018-08-18] MEDS: NALTREXONE HCL 50 MG TABLET PO SCH (08:52)
[2018-08-18] MEDS: MULTIVITAMINS WITH MINERALS, THERAPEUTIC TABLET PO SCH (08:52)
[2018-08-18 09:39] LABS: APPEARANCE,URINE CLEAR (CLEAR); BILIRUBIN,URINE NEGATIVE (NEGATIVE); GLUCOSE, URINE (UA) NEGATIVE (NEGATIVE); KETONES,URINE NEGATIVE (NEGATIVE); LEUKOCYTE ESTERASE ,URINE NEGATIVE (NEGATIVE); NITRATE,URINE NEGATIVE (NEGATIVE); OCCULT BLOOD,URINE NEGATIVE (NEGATIVE); PH,URINE 6.5 (5.0-8.0); PROTEIN,URINE NEGATIVE (NEGATIVE)
[2018-08-18 09:54] LABS: AMPHET/METH SCREEN,URINE NEGATIVE (NEGATIVE); BARBITURATE SCREEN, URINE NEGATIVE (NEGATIVE); BENZODIAZEPINES SCREEN,URINE NEGATIVE (NEGATIVE); CANNABINOID SCREEN,URINE NEGATIVE (NEGATIVE); COCAINE SCREEN,URINE NEGATIVE (NEGATIVE); METHADONE SCREEN, URINE NEGATIVE (NEGATIVE); OPIATE SCREEN,URINE NEGATIVE (NEGATIVE)
[2018-08-18 09:56] LABS: PHENCYCLIDINE SCREEN,URINE NEGATIVE (NEGATIVE)
[2018-08-18] MEDS ORDERED: TRIL4 PO ×2 (15:13→16:04)
[2018-08-18] MEDS ORDERED: NALT50TA PO (15:13)
[2018-08-18 16:00] VITALS: BP 120/82
[2018-08-18] MEDS ORDERED: MULT-1239 PO (16:04)
[2018-08-18] MEDS ORDERED: THIA100T67 PO (16:04)
[2018-08-18] MEDS ORDERED: FOLI1 PO (16:04)
[2018-08-18] MEDS ORDERED: NALT50TA6 PO (16:04)
== END 2018-08-18 17:45 | disposition home or self-care (01) | DRG 885 ==
LOC: B2X 08-15 17:20
PROVIDERS: ADMIT Psychiatry & Neurology Psychiatry; ATTEND Psychiatry & Neurology Psychiatry
DX: F25.0 Schizoaffective disorder, bipolar type (principal); R45.851 Suicidal ideations; K21.9 Gastro-esophageal reflux disease without esophagitis; J44.9 Chronic obstructive pulmonary disease, unspecified; E03.9 Hypothyroidism, unspecified; K59.00 Constipation, unspecified; I10 Essential (primary) hypertension; F17.200 Nicotine dependence, unspecified, uncomplicated; Z91.19 Patient's noncompliance with other medical treatment and regimen; Z71.6 Tobacco abuse counseling
CPT/HCPCS: 80307; 83036; 84443; 90732

== ENCOUNTER 2018-11-06 18:47 | Inpatient (IN) | payer MEDICARE, MEDICAID ==
[~2018-11-06] VITALS: Ht 160 cm; Wt 62.7 kg
[~2018-11-06 18:47] MED LIST changes: -ARIP15TA2 PO; -ARIP882S IM; +FOLI1 PO; +MULT-1239 PO; +NALT50TA PO; +NALT50TA6 PO; +THIA100T67 PO; -TRAZ-219 PO; +TRIL4 PO
[2018-11-06 21:34] LABS: HEMATOCRIT 38.6 % (36-46); HEMOGLOBIN 12.1 g/dL (12.0-16.0); LYMPHOCYTES # (AUTO) 4.2 K/uL (1.0-4.8); MEAN CORPUSCULAR HEMOGLOBIN 18.6 pg (26.0-34.0); MEAN CORPUSCULAR HGB CONC 31.4 G/dL (31.0-37.0); MEAN CORPUSCULAR VOLUME 59 fL (80-100); MONOCYTES # (AUTO) 0.9 K/uL (0.1-1.0); MONOCYTES % (AUTO) 7.7 % (2.0-9.0); NEUTROPHILS # (AUTO) 5.5 K/uL (1.8-7.7); NEUTROPHILS % (AUTO) 49.3 % (40.0-70.0); PLATELET COUNT (AUTO) 222 K/uL (150-450); RED CELL DISTRIBUTION WIDTH 15.6 % (11.5-14.5)
[2018-11-06 21:40] LABS: AMPHET/METH SCREEN,URINE NEGATIVE (NEGATIVE); BARBITURATE SCREEN, URINE NEGATIVE (NEGATIVE); BENZODIAZEPINES SCREEN,URINE NEGATIVE (NEGATIVE); CANNABINOID SCREEN,URINE NEGATIVE (NEGATIVE); COCAINE SCREEN,URINE NEGATIVE (NEGATIVE); METHADONE SCREEN, URINE NEGATIVE (NEGATIVE); OPIATE SCREEN,URINE NEGATIVE (NEGATIVE)
[2018-11-06 21:41] LABS: PHENCYCLIDINE SCREEN,URINE NEGATIVE (NEGATIVE)
[2018-11-06 21:44] LABS: ANION GAP 5 mmol/L (8-16); CARBON DIOXIDE 29 mmol/L (22-29); CHLORIDE 101 mmol/L (98-107); CREATININE 0.73 mg/dL (0.60-1.30); GLOMERULAR FILTR. RATE CALC > 60 mL/min (>60); GLUCOSE,RANDOM 112 mg/dL (70-110); POTASSIUM 3.5 mmol/L (3.5-5.1); SODIUM SERUM 135 mmol/L (136-145); UREA NITROGEN, BLOOD 15 mg/dL (7-18)
[2018-11-06] MEDS ORDERED: LORazepam 2 MG TABLET PO PRN (21:45)
[2018-11-06] MEDS ORDERED: ESZOPICLONE 2 MG TABLET PO PRN (21:45)
[2018-11-06] MEDS ORDERED: HydrOXYzine PAMOATE 50 MG CAPSULE PO PRN (21:45)
[2018-11-06] MEDS ORDERED: ChlorproMAZINE HCL 25 MG TABLET PO PRN (21:45)
[2018-11-06 21:51] LABS: ALANINE AMINOTRANSFERASE 15 U/L (12-78); ALBUMIN 3.8 g/dL (3.4-5.0); ALKALINE PHOSPHATASE 104 U/L (46-116); ASPARTATE AMINOTRANSFERASE 15 U/L (15-37); BILIRUBIN,TOTAL 0.6 mg/dL (0.1-1.0); TOTAL PROTEIN, SERUM 6.5 g/dL (6.4-8.2)
[2018-11-07 01:00] VITALS: BP 132/83
[2018-11-07] MEDS ORDERED: ChlorproMAZINE HCL 100 MG TABLET PO PRN (04:21)
[2018-11-07] MEDS ORDERED: ALBUTEROL SULFATE HFA 90 MCG/PUFF 8 GM INHALER IH PRN (06:45)
[2018-11-07] MEDS ORDERED: DOCUSATE SODIUM 100 MG CAPSULE PO PRN (06:45)
[2018-11-07] MEDS ORDERED: MAGNESIUM HYDROXIDE SUSPENSION 30 ML UDCUP PO PRN (06:45)
[2018-11-07] MEDS ORDERED: CloNIDine HCL 0.1 MG TABLET PO PRN (06:45)
[2018-11-07] MEDS ORDERED: PETROLATUM,WHITE 71 GM JELLY TP PRN (06:45)
[2018-11-07] MEDS ORDERED: MAG HYDROX/AL HYDROX/SIMETH ES 30 ML SUSPENSION UDCUP PO PRN (06:45)
[2018-11-07] MEDS ORDERED: ACETAMINOPHEN 325 MG TABLET PO PRN (06:45)
[2018-11-07] MEDS ORDERED: IBUPROFEN 400 MG TABLET PO PRN (06:45)
[2018-11-07] MEDS ORDERED: LOPERAMIDE HCL 2 MG CAPSULE PO PRN (06:45)
[2018-11-07] MEDS ORDERED: GuaiFENesin/D-METHORPHAN [SUGAR-FREE] 200-20MG/10 ML SYRUP UDCUP PO PRN (06:45)
[2018-11-07] MEDS ORDERED: NICOTINE 14 MG/24 HOUR PATCH TD PRN (06:45)
[2018-11-07] MEDS ORDERED: ONDANSETRON HCL 4 MG TABLET PO PRN (06:45)
[2018-11-07] MEDS ORDERED: LORazepam 2 MG TABLET PO PRN (07:00)
[2018-11-07 08:17] VITALS: BP 107/58
[2018-11-07 08:39] LABS: BASOPHILS % (AUTO) 1.1 % (0.0-2.0); EOSINOPHILS % (AUTO) 3.8 % (1.0-6.0); HEMATOCRIT 39.9 % (36-46); HEMOGLOBIN 12.7 g/dL (12.0-16.0); LYMPHOCYTES # (AUTO) 3.3 K/uL (1.0-4.8); LYMPHOCYTES % (AUTO) 36.7 % (22.0-44.0); MEAN CORPUSCULAR HEMOGLOBIN 18.9 pg (26.0-34.0); MEAN CORPUSCULAR HGB CONC 31.8 G/dL (31.0-37.0); MEAN CORPUSCULAR VOLUME 60 fL (80-100); MONOCYTES # (AUTO) 0.9 K/uL (0.1-1.0); NEUTROPHILS # (AUTO) 4.3 K/uL (1.8-7.7); NEUTROPHILS % (AUTO) 48.4 % (40.0-70.0); PLATELET COUNT (AUTO) 224 K/uL (150-450); RED BLOOD CELL COUNT(AUTO) 6.71 MIL/uL (4.00-5.20); RED CELL DISTRIBUTION WIDTH 15.7 % (11.5-14.5)
[2018-11-07 08:50] LABS: HEMOGLOBIN A1C 5.7 % (4.5-6.2)
[2018-11-07] MEDS ORDERED: LORazepam 2 MG TABLET PO SCH (09:00)
[2018-11-07] MEDS ORDERED: PERPHENAZINE 4 MG TABLET PO SCH (09:00)
[2018-11-07] MEDS: CarBAMazepine 200 MG TABLET PO SCH ×2 (09:00→17:00)
[2018-11-07 09:25] LABS: CHOL/HDL RATIO 2.7 (3.9-5.7); CHOLESTEROL 120 mg/dL (131-200); HDL CHOLESTEROL 45 mg/dL (40-60); LDL CHOL (CALC.) 56 mg/dL (0-130); THYROID STIMULATING HORMONE 1.14 uIU/mL (0.36-3.74); TRIGLYCERIDES 94 mg/dL (15-150)
[2018-11-07 09:38] LABS: CARBAMAZEPINE (TEGRETOL) < 0.5 mcg/mL (4.0-12.0); VALPROIC ACID < 3 mcg/mL (50-100)
[2018-11-07 16:05] VITALS: BP 108/60
[2018-11-07] MEDS: HydrOXYzine PAMOATE 50 MG CAPSULE PO PRN (17:22)
[2018-11-07] MEDS: DiphenhydrAMINE HCL 25 MG CAPSULE PO SCH (20:12)
[2018-11-08 06:18] VITALS: BP 120/74
[2018-11-08] MEDS: PERPHENAZINE 2 MG TABLET PO SCH ×2 (08:17→16:39)
[2018-11-08 08:24] VITALS: BP 109/65
[2018-11-08 08:27] LABS: BASOPHILS % (AUTO) 0.9 % (0.0-2.0); EOSINOPHILS % (AUTO) 3.1 % (1.0-6.0); HEMATOCRIT 41.2 % (36-46); HEMOGLOBIN 12.8 g/dL (12.0-16.0); LYMPHOCYTES # (AUTO) 3.1 K/uL (1.0-4.8); MEAN CORPUSCULAR HEMOGLOBIN 18.8 pg (26.0-34.0); MEAN CORPUSCULAR HGB CONC 31.2 G/dL (31.0-37.0); MEAN CORPUSCULAR VOLUME 60 fL (80-100); MONOCYTES # (AUTO) 0.8 K/uL (0.1-1.0); MONOCYTES % (AUTO) 8.8 % (2.0-9.0); NEUTROPHILS # (AUTO) 5.3 K/uL (1.8-7.7); NEUTROPHILS % (AUTO) 55.2 % (40.0-70.0); PLATELET COUNT (AUTO) 199 K/uL (150-450); RED BLOOD CELL COUNT(AUTO) 6.83 MIL/uL (4.00-5.20); RED CELL DISTRIBUTION WIDTH 15.4 % (11.5-14.5)
[2018-11-08 08:41] LABS: HEMOGLOBIN A1C 5.8 % (4.5-6.2)
[2018-11-08 08:58] LABS: ANION GAP 9 mmol/L (8-16); CARBON DIOXIDE 27 mmol/L (22-29); CHLORIDE 106 mmol/L (98-107); CREATININE 0.63 mg/dL (0.60-1.30); GLUCOSE,RANDOM 82 mg/dL (70-110); POTASSIUM 4.8 mmol/L (3.5-5.1); SODIUM SERUM 142 mmol/L (136-145); UREA NITROGEN, BLOOD 12 mg/dL (7-18)
[2018-11-08 08:59] LABS: ALANINE AMINOTRANSFERASE 20 U/L (12-78); ALBUMIN 3.6 g/dL (3.4-5.0); ALKALINE PHOSPHATASE 88 U/L (46-116); ASPARTATE AMINOTRANSFERASE 12 U/L (15-37); CALCIUM, TOTAL 9.2 mg/dL (8.8-10.5); CHOL/HDL RATIO 2.8 (3.9-5.7); CHOLESTEROL 124 mg/dL (131-200); GLOMERULAR FILTR. RATE CALC > 60 mL/min (>60); HDL CHOLESTEROL 44 mg/dL (40-60); LDL CHOL (CALC.) 57 mg/dL (0-130); THYROID STIMULATING HORMONE 1.04 uIU/mL (0.36-3.74); TOTAL PROTEIN, SERUM 6.1 g/dL (6.4-8.2); TRIGLYCERIDES 116 mg/dL (15-150)
[2018-11-08] MEDS ORDERED: BACITRACIN 28.4 GM OINTMENT TP PRN (09:30)
[2018-11-08 16:21] VITALS: BP 141/82
[2018-11-08] MEDS: HydrOXYzine PAMOATE 50 MG CAPSULE PO PRN (16:39)
[2018-11-08] MEDS ORDERED: DIPH25 PO (17:42)
[2018-11-08] MEDS ORDERED: TRIL2 PO (17:42)
[2018-11-08] MEDS: DiphenhydrAMINE HCL 25 MG CAPSULE PO SCH (20:16)
[2018-11-09 06:46] VITALS: BP 120/74
[2018-11-09] MEDS ORDERED: LORazepam 1 MG TABLET PO PRN (07:00)
[2018-11-09] MEDS: PERPHENAZINE 2 MG TABLET PO SCH (08:14)
[2018-11-09 08:24] VITALS: BP 115/84
[2018-11-09] MEDS ORDERED: DIPH50 PO (08:32)
[2018-11-09] MEDS ORDERED: LORazepam 1 MG TABLET PO SCH (09:00)
[2018-11-10] MEDS ORDERED: LORazepam 1 MG TABLET PO PRN (07:00)
== END 2018-11-09 09:40 | disposition home or self-care (01) | DRG 885 ==
LOC: EMS 18:48 → B3A 11-07 00:10
PROVIDERS: ADMIT Psychiatry & Neurology Psychiatry; ATTEND Psychiatry & Neurology Psychiatry
DX: F25.0 Schizoaffective disorder, bipolar type (principal); R45.851 Suicidal ideations; E03.9 Hypothyroidism, unspecified; F10.20 Alcohol dependence, uncomplicated; F17.210 Nicotine dependence, cigarettes, uncomplicated; G47.00 Insomnia, unspecified; K59.00 Constipation, unspecified; Z91.19 Patient's noncompliance with other medical treatment and regimen; Z88.0 Allergy status to penicillin; Z79.899 Other long term (current) drug therapy; Z56.0 Unemployment, unspecified; Z91.5 Personal history of self-harm
CPT/HCPCS: 83036; 84436; 84439; 84443; G0480

== ENCOUNTER 2018-12-01 19:46 | Emergency (ER) | payer MEDICARE, OTHER ==
[~2018-12-01] VITALS: Ht 160 cm; Wt 61.4 kg
[~2018-12-01 19:46] MED LIST changes: +DIPH25 PO; +DIPH50 PO; -FOLI1 PO; -MULT-1239 PO; -NALT50TA PO; -NALT50TA6 PO; -THIA100T67 PO; +TRIL2 PO
[2018-12-01] MEDS ORDERED: HALO100V4 IM (20:12)
[2018-12-01 21:35] LABS: BASOPHILS % (AUTO) 0.7 % (0.0-2.0); HEMOGLOBIN 11.8 g/dL (12.0-16.0); LYMPHOCYTES # (AUTO) 3.6 K/uL (1.0-4.8); MEAN CORPUSCULAR HEMOGLOBIN 18.8 pg (26.0-34.0); MEAN CORPUSCULAR HGB CONC 31.9 G/dL (31.0-37.0); MEAN CORPUSCULAR VOLUME 59 fL (80-100); MONOCYTES % (AUTO) 9.3 % (2.0-9.0); NEUTROPHILS # (AUTO) 5.5 K/uL (1.8-7.7); PLATELET COUNT (AUTO) 204 K/uL (150-450); RED BLOOD CELL COUNT(AUTO) 6.29 MIL/uL (4.00-5.20); RED CELL DISTRIBUTION WIDTH 16.5 % (11.5-14.5)
[2018-12-01 21:43] LABS: ANION GAP 8 mmol/L (8-16); CALCIUM, TOTAL 8.9 mg/dL (8.8-10.5); CARBON DIOXIDE 29 mmol/L (22-29); CHLORIDE 105 mmol/L (98-107); CREATININE 0.78 mg/dL (0.60-1.30); GLOMERULAR FILTR. RATE CALC > 60 mL/min (>60); GLUCOSE,RANDOM 112 mg/dL (70-110); POTASSIUM 3.8 mmol/L (3.5-5.1); SODIUM SERUM 142 mmol/L (136-145); UREA NITROGEN, BLOOD 16 mg/dL (7-18)
[2018-12-01 21:49] LABS: ALANINE AMINOTRANSFERASE 22 U/L (12-78); ALBUMIN 3.8 g/dL (3.4-5.0); ALKALINE PHOSPHATASE 101 U/L (46-116); ASPARTATE AMINOTRANSFERASE 13 U/L (15-37); BILIRUBIN,TOTAL 0.5 mg/dL (0.1-1.0); TOTAL PROTEIN, SERUM 6.1 g/dL (6.4-8.2)
[2018-12-01 23:10] VITALS: BP 122/83
[2018-12-01 23:32] LABS: AMPHET/METH SCREEN,URINE NEGATIVE (NEGATIVE); BARBITURATE SCREEN, URINE NEGATIVE (NEGATIVE); BENZODIAZEPINES SCREEN,URINE NEGATIVE (NEGATIVE); CANNABINOID SCREEN,URINE NEGATIVE (NEGATIVE); COCAINE SCREEN,URINE NEGATIVE (NEGATIVE); METHADONE SCREEN, URINE NEGATIVE (NEGATIVE); OPIATE SCREEN,URINE NEGATIVE (NEGATIVE)
[2018-12-01 23:36] LABS: PHENCYCLIDINE SCREEN,URINE NEGATIVE (NEGATIVE)
== END 2018-12-01 23:40 | disposition home or self-care (01) ==
LOC: EMS 19:49
DX: F43.0 Acute stress reaction (principal); F41.9 Anxiety disorder, unspecified; F20.9 Schizophrenia, unspecified; E03.9 Hypothyroidism, unspecified; F17.210 Nicotine dependence, cigarettes, uncomplicated; Z88.0 Allergy status to penicillin; Z79.899 Other long term (current) drug therapy
CPT/HCPCS: 36415; 80053; 80307; 85025; 99283; G0480

== ENCOUNTER 2019-03-13 18:47 | Inpatient (IN) | payer MEDICARE, MEDICAID ==
[~2019-03-13] VITALS: Ht 152.4 cm; Wt 77.4 kg
[~2019-03-13 18:47] MED LIST changes: -DIPH25 PO; -DIPH50 PO; +HALO100V4 IM; -TRIL2 PO; -TRIL4 PO
[2019-03-13] MEDS ORDERED: HALOPERIDOL 5 MG TABLET PO PRN (19:15)
[2019-03-13] MEDS ORDERED: ZOLPIDEM TARTRATE 10 MG TABLET PO PRN (19:15)
[2019-03-13] MEDS ORDERED: LORazepam 2 MG TABLET PO PRN (19:15)
[2019-03-13 20:01] VITALS: BP 140/80
[2019-03-13] MEDS ORDERED: PNEUMOCOCCAL VACCINE POLYVALENT 0.5 ML VIAL [PPSV23] IM ONE (20:30)
[2019-03-13] MEDS ORDERED: ALBUTEROL SULFATE HFA 90 MCG/PUFF 8 GM INHALER IH PRN (21:45)
[2019-03-13 21:50] VITALS: BP 135/85
[2019-03-14 08:09] VITALS: BP 149/92
[2019-03-14] MEDS ORDERED: CloNIDine HCL 0.1 MG TABLET PO PRN (08:30)
[2019-03-14] MEDS ORDERED: LOPERAMIDE HCL 2 MG CAPSULE PO PRN (08:30)
[2019-03-14] MEDS ORDERED: IBUPROFEN 600 MG TABLET PO PRN (08:30)
[2019-03-14] MEDS ORDERED: ACETAMINOPHEN 325 MG TABLET PO PRN (08:30)
[2019-03-14] MEDS ORDERED: OMEPRAZOLE 20 MG CAPSULE PO PRN (08:30)
[2019-03-14] MEDS ORDERED: ONDANSETRON HCL 4 MG TABLET PO PRN (08:30)
[2019-03-14] MEDS ORDERED: MAG HYDROX/AL HYDROX/SIMETH ES 30 ML SUSPENSION UDCUP PO PRN (08:30)
[2019-03-14] MEDS ORDERED: BACITRACIN 28.4 GM OINTMENT TP PRN (08:30)
[2019-03-14] MEDS ORDERED: BENZOCAINE/MENTHOL LOZENGE MM PRN (08:30)
[2019-03-14] MEDS ORDERED: MAGNESIUM HYDROXIDE SUSPENSION 30 ML UDCUP PO PRN (08:30)
[2019-03-14] MEDS ORDERED: PETROLATUM,WHITE 28 GM JELLY TP PRN (08:30)
[2019-03-14] MEDS ORDERED: DOCUSATE SODIUM 100 MG CAPSULE PO PRN (08:30)
[2019-03-14] MEDS: NICOTINE 21 MG/24 HOUR PATCH TD SCH (09:49)
[2019-03-14 16:06] VITALS: BP 129/86
[2019-03-14] MEDS: HALOPERIDOL 5 MG TABLET PO SCH (20:12)
[2019-03-15 06:20] VITALS: BP 117/69
[2019-03-15 08:03] VITALS: BP 125/90
[2019-03-15] MEDS: HALOPERIDOL 5 MG TABLET PO SCH ×2 (08:09→20:01)
[2019-03-15] MEDS: NICOTINE 21 MG/24 HOUR PATCH TD SCH (08:09)
[2019-03-15 08:14] LABS: BASOPHILS % (AUTO) 0.8 % (0.0-2.0); EOSINOPHILS % (AUTO) 3.3 % (1.0-6.0); HEMOGLOBIN 14.1 g/dL (12.0-16.0); LYMPHOCYTES # (AUTO) 3.7 K/uL (1.0-4.8); LYMPHOCYTES % (AUTO) 32.2 % (22.0-44.0); MEAN CORPUSCULAR HGB CONC 31.3 G/dL (31.0-37.0); MEAN CORPUSCULAR VOLUME 61 fL (80-100); MONOCYTES % (AUTO) 8.4 % (2.0-9.0); NEUTROPHILS # (AUTO) 6.3 K/uL (1.8-7.7); NEUTROPHILS % (AUTO) 55.3 % (40.0-70.0); RED BLOOD CELL COUNT(AUTO) 7.41 MIL/uL (4.00-5.20)
[2019-03-15 08:28] LABS: HEMOGLOBIN A1C 5.7 % (4.5-6.2)
[2019-03-15 08:52] LABS: CHOL/HDL RATIO 3.4 (3.9-5.7); FREE T4 (FREE THYROXINE) 0.97 ng/dL (0.76-1.46)
[2019-03-15] MEDS ORDERED: HALOPERIDOL DECANOATE 50 MG/ML VIAL IM SCH (09:15)
[2019-03-15 09:17] LABS: THYROID STIMULATING HORMONE 1.45 uIU/mL (0.36-3.74)
[2019-03-15 09:22] LABS: PLATELET COUNT (AUTO) 201 K/uL (150-450)
[2019-03-15 16:23] VITALS: BP 123/76
[2019-03-16 08:13] VITALS: BP 129/86
[2019-03-16] MEDS: HALOPERIDOL 5 MG TABLET PO SCH (08:16)
[2019-03-16] MEDS: NICOTINE 21 MG/24 HOUR PATCH TD SCH (08:19)
[2019-03-16] MEDS ORDERED: HALO50VI4 IM (11:15)
== END 2019-03-16 16:36 | disposition home or self-care (01) | DRG 885 ==
LOC: B2S 19:17
DX: F25.1 Schizoaffective disorder, depressive type (principal); R45.851 Suicidal ideations; Z28.21 Immunization not carried out because of patient refusal; E03.9 Hypothyroidism, unspecified; J44.9 Chronic obstructive pulmonary disease, unspecified; F10.10 Alcohol abuse, uncomplicated; Z91.5 Personal history of self-harm; Z79.899 Other long term (current) drug therapy; K59.00 Constipation, unspecified; G47.00 Insomnia, unspecified; F41.9 Anxiety disorder, unspecified; F17.200 Nicotine dependence, unspecified, uncomplicated; Z56.0 Unemployment, unspecified
CPT/HCPCS: 83036; 84439; 84443; J1631

== ENCOUNTER 2019-10-29 09:49 | Emergency (ER) | payer MEDICARE, OTHER ==
[~2019-10-29] VITALS: Ht 160 cm; Wt 96.0 kg
[~2019-10-29 09:49] MED LIST changes: -HALO100V4 IM; +HALO50VI4 IM
[2019-10-29] MEDS ORDERED: LEVO75 PO (10:01)
[2019-10-29] MEDS ORDERED: ARIP10TA8 PO (10:01)
[2019-10-29] MEDS ORDERED: BACLOFEN 10 MG TABLET PO ONE (10:30)
[2019-10-29] MEDS ORDERED: KETOROLAC TROMETHAMINE 60 MG/2 ML VIAL IM ONE (10:30)
[2019-10-29 11:11] LABS: EOSINOPHILS % (AUTO) 4.2 % (1.0-6.0); HEMATOCRIT 38.7 % (36-46); LYMPHOCYTES # (AUTO) 2.6 K/uL (1.0-4.8); MEAN CORPUSCULAR HEMOGLOBIN 18.6 pg (26.0-34.0); MEAN CORPUSCULAR VOLUME 60 fL (80-100); MONOCYTES # (AUTO) 0.8 K/uL (0.1-1.0); MONOCYTES % (AUTO) 8.1 % (2.0-9.0); NEUTROPHILS # (AUTO) 5.5 K/uL (1.8-7.7); NEUTROPHILS % (AUTO) 58.7 % (40.0-70.0); PLATELET COUNT (AUTO) 208 K/uL (150-450); RED BLOOD CELL COUNT(AUTO) 6.46 MIL/uL (4.00-5.20); RED CELL DISTRIBUTION WIDTH 16.3 % (11.5-14.5)
[2019-10-29 11:23] LABS: ANION GAP 2 mmol/L (8-16); CALCIUM, TOTAL 9.1 mg/dL (8.8-10.5); CARBON DIOXIDE 31 mmol/L (22-29); CHLORIDE 106 mmol/L (98-107); CREATININE 0.61 mg/dL (0.60-1.30); GLOMERULAR FILTR. RATE CALC > 60 mL/min (>60); GLUCOSE,RANDOM 106 mg/dL (70-110); POTASSIUM 4.1 mmol/L (3.5-5.1); SODIUM SERUM 139 mmol/L (136-145); UREA NITROGEN, BLOOD 11 mg/dL (7-18)
[2019-10-29 11:28] LABS: ALANINE AMINOTRANSFERASE 33 U/L (12-78); ALBUMIN 4.3 g/dL (3.4-5.0); ALKALINE PHOSPHATASE 107 U/L (46-116); ASPARTATE AMINOTRANSFERASE 14 U/L (15-37); BILIRUBIN,TOTAL 0.5 mg/dL (0.1-1.0); LIPASE 75 U/L (73-393); TOTAL PROTEIN, SERUM 6.8 g/dL (6.4-8.2)
[2019-10-29 11:36] VITALS: BP 128/83
== END 2019-10-29 12:16 | disposition home or self-care (01) ==
LOC: EMS 09:52
DX: R07.89 Other chest pain (principal); M54.6 Pain in thoracic spine; F41.9 Anxiety disorder, unspecified; F20.9 Schizophrenia, unspecified; E03.9 Hypothyroidism, unspecified; F17.210 Nicotine dependence, cigarettes, uncomplicated; Z90.89 Acquired absence of other organs; Z88.0 Allergy status to penicillin
CPT/HCPCS: 36415; 80053; 83690; 84484; 85025; 93005; 96372; 99284; 99406; J1885

== ENCOUNTER 2020-01-26 23:02 | Emergency (ER) | payer MEDICARE, OTHER ==
[~2020-01-26] VITALS: Ht 160 cm; Wt 100.0 kg
[~2020-01-26 23:02] MED LIST changes: +ARIP10TA8 PO; -HALO50VI4 IM; +LEVO75 PO
[2020-01-27] LABS: BASOPHILS % (AUTO) 0.5 % (0.0-2.0); EOSINOPHILS % (AUTO) 3.1 % (1.0-6.0); HEMOGLOBIN 11.8 g/dL (12.0-16.0); LYMPHOCYTES # (AUTO) 3.4 K/uL (1.0-4.8); LYMPHOCYTES % (AUTO) 28.2 % (22.0-44.0); MEAN CORPUSCULAR HEMOGLOBIN 18.2 pg (26.0-34.0); MEAN CORPUSCULAR HGB CONC 30.9 G/dL (31.0-37.0); MEAN CORPUSCULAR VOLUME 59 fL (80-100); MONOCYTES % (AUTO) 8.2 % (2.0-9.0); NEUTROPHILS # (AUTO) 7.1 K/uL (1.8-7.7); PLATELET COUNT (AUTO) 251 K/uL (150-450); RED BLOOD CELL COUNT(AUTO) 6.46 MIL/uL (4.00-5.20); RED CELL DISTRIBUTION WIDTH 15.1 % (11.5-14.5)
[2020-01-27 00:10] LABS: ANION GAP 10 mmol/L (8-16); CALCIUM, TOTAL 9.5 mg/dL (8.8-10.5); CARBON DIOXIDE 26 mmol/L (22-29); CHLORIDE 100 mmol/L (98-107); CREATININE 0.63 mg/dL (0.60-1.30); GLOMERULAR FILTR. RATE CALC > 60 mL/min (>60); GLUCOSE,RANDOM 143 mg/dL (70-110); POTASSIUM 3.6 mmol/L (3.5-5.1); SODIUM SERUM 136 mmol/L (136-145); UREA NITROGEN, BLOOD 9 mg/dL (7-18)
[2020-01-27 00:28] LABS: ALANINE AMINOTRANSFERASE 41 U/L (12-78); ALBUMIN 4.7 g/dL (3.4-5.0); ALKALINE PHOSPHATASE 105 U/L (46-116); ASPARTATE AMINOTRANSFERASE 19 U/L (15-37); BILIRUBIN,TOTAL 0.5 mg/dL (0.1-1.0); FREE T4 (FREE THYROXINE) 1.49 ng/dL (0.76-1.46); THYROID STIMULATING HORMONE 0.03 uIU/mL (0.36-3.74); TOTAL PROTEIN, SERUM 7.6 g/dL (6.4-8.2)
[2020-01-27 01:45] LABS: AMPHET/METH SCREEN,URINE NEGATIVE (NEGATIVE); BARBITURATE SCREEN, URINE NEGATIVE (NEGATIVE); BENZODIAZEPINES SCREEN,URINE NEGATIVE (NEGATIVE); CANNABINOID SCREEN,URINE NEGATIVE (NEGATIVE); COCAINE SCREEN,URINE NEGATIVE (NEGATIVE); METHADONE SCREEN, URINE NEGATIVE (NEGATIVE); OPIATE SCREEN,URINE NEGATIVE (NEGATIVE)
[2020-01-27 01:46] LABS: PHENCYCLIDINE SCREEN,URINE NEGATIVE (NEGATIVE)
[2020-01-27 01:57] LABS: APPEARANCE,URINE CLEAR (CLEAR); BILIRUBIN,URINE NEGATIVE (NEGATIVE); GLUCOSE, URINE (UA) NEGATIVE (NEGATIVE); KETONES,URINE NEGATIVE (NEGATIVE); LEUKOCYTE ESTERASE ,URINE NEGATIVE (NEGATIVE); NITRATE,URINE NEGATIVE (NEGATIVE); OCCULT BLOOD,URINE NEGATIVE (NEGATIVE); PH,URINE 5.5 (5.0-8.0); PROTEIN,URINE NEGATIVE (NEGATIVE); UROBILINOGEN,URINE 0.2 mg/dL (<=1.0)
[2020-01-27] MEDS ORDERED: ARIPiprazole 10 MG TABLET PO ONE (02:00)
[2020-01-27 02:03] LABS: BACTERIA,URINE None Seen /HPF (None Seen); RBC,URINE None Seen /HPF (0-2); SQUAMOUS EPITHELIAL CELL,UR Rare /LPF (None Seen); WBC,URINE None Seen /HPF (0-5)
[2020-01-27 02:30] VITALS: BP 148/82
== END 2020-01-27 02:30 | disposition home or self-care (01) ==
LOC: EMS 23:06
DX: F25.1 Schizoaffective disorder, depressive type (principal); F45.8 Other somatoform disorders; E03.9 Hypothyroidism, unspecified; Z87.891 Personal history of nicotine dependence; Z90.49 Acquired absence of other specified parts of digestive tract; Z88.0 Allergy status to penicillin; Z79.899 Other long term (current) drug therapy
CPT/HCPCS: 36415; 80053; 80307; 81001; 84439; 84443; 85025; 99284; G0480

== ENCOUNTER 2020-03-13 08:01 | Inpatient (IN) | payer MEDICARE, MEDICAID ==
[~2020-03-13] VITALS: Ht 160 cm; Wt 100.0 kg
[2020-03-13] MEDS ORDERED: ARIP400S3 IM (09:25)
[2020-03-13 09:30] VITALS: BP 109/61
[2020-03-13] MEDS ORDERED: TUBERCULIN, PURIFIED PROTEIN DERIVATIVE 5 TU/0.1 ML SYRINGE ID ONE (10:15)
[2020-03-13] MEDS ORDERED: PROMETHAZINE HCL 25 MG TABLET PO PRN (10:15)
[2020-03-13] MEDS ORDERED: MAGNESIUM HYDROXIDE SUSPENSION 30 ML UDCUP PO PRN (10:15)
[2020-03-13] MEDS ORDERED: LOPERAMIDE HCL 2 MG CAPSULE PO PRN (10:15)
[2020-03-13] MEDS ORDERED: ACETAMINOPHEN 325 MG TABLET PO PRN (10:15)
[2020-03-13] MEDS ORDERED: OLANZapine 5 MG RAPDIS TABLET PO PRN (10:15)
[2020-03-13] MEDS ORDERED: MAG HYDROX/AL HYDROX/SIMETH ES 30 ML SUSPENSION UDCUP PO PRN (10:15)
[2020-03-13] MEDS ORDERED: HydrOXYzine PAMOATE 50 MG CAPSULE PO PRN (10:15)
[2020-03-13 10:30] VITALS: BP 140/80
[2020-03-13] MEDS ORDERED: NICOTINE 21 MG/24 HOUR PATCH TD PRN (12:15)
[2020-03-13] MEDS ORDERED: ARIPiprazole ER SUSPENSION 400 MG PRE-FILLED DUAL CHAMBER SYRINGE IM ONE (16:00)
[2020-03-13] MEDS: THIAMINE 100 MG TABLET PO SCH (16:30)
[2020-03-13 16:39] VITALS: BP 132/79
[2020-03-13] MEDS: ZOLPIDEM TARTRATE 10 MG TABLET PO PRN (21:21)
[2020-03-14] MEDS ORDERED: PNEUMOCOCCAL VACCINE POLYVALENT 0.5 ML VIAL [PPSV23] IM ONE (03:30)
[2020-03-14 04:20] VITALS: BP 129/78
[2020-03-14] MEDS ORDERED: LEVOTHYROXINE SODIUM 50 MCG TABLET PO SCH (06:30)
[2020-03-14] MEDS: LEVOTHYROXINE SODIUM 75 MCG TABLET PO SCH (06:56)
[2020-03-14] MEDS: ARIPiprazole 15 MG TABLET PO SCH (08:22)
[2020-03-14 08:24] LABS: HEMOGLOBIN A1C 5.7 % (3.8-5.6)
[2020-03-14] MEDS: FOLIC ACID 1 MG TABLET PO SCH (08:27)
[2020-03-14 08:28] LABS: CHOL/HDL RATIO 4.3 (3.9-5.7); FREE T4 (FREE THYROXINE) 1.34 ng/dL (0.76-1.46); THYROID STIMULATING HORMONE 1.34 uIU/mL (0.36-3.74)
[2020-03-14] MEDS: THIAMINE 100 MG TABLET PO SCH ×2 (08:28→16:37)
[2020-03-14] MEDS: MULTIVITAMINS WITH MINERALS, THERAPEUTIC TABLET PO SCH (08:28)
[2020-03-14 08:31] VITALS: BP 141/92
[2020-03-14 16:26] VITALS: BP 107/64
[2020-03-14] MEDS: GuaiFENesin/D-METHORPHAN [SUGAR-FREE] 200-20MG/10 ML SYRUP UDCUP PO PRN (18:59)
[2020-03-14] MEDS: ZOLPIDEM TARTRATE 10 MG TABLET PO PRN (21:57)
[2020-03-15 01:06] VITALS: BP 119/66
[2020-03-15] MEDS: LEVOTHYROXINE SODIUM 75 MCG TABLET PO SCH (07:04)
[2020-03-15 08:54] VITALS: BP 120/65
[2020-03-15] MEDS: ARIPiprazole 15 MG TABLET PO SCH (08:54)
[2020-03-15] MEDS: THIAMINE 100 MG TABLET PO SCH ×2 (08:55→16:27)
[2020-03-15] MEDS: MULTIVITAMINS WITH MINERALS, THERAPEUTIC TABLET PO SCH (08:55)
[2020-03-15] MEDS: FOLIC ACID 1 MG TABLET PO SCH (08:55)
[2020-03-15] MEDS: LORazepam 2 MG TABLET PO PRN (13:02)
[2020-03-15 16:30] VITALS: BP 126/84
[2020-03-15] MEDS: GuaiFENesin/D-METHORPHAN [SUGAR-FREE] 200-20MG/10 ML SYRUP UDCUP PO PRN (16:45)
[2020-03-15] MEDS: ZOLPIDEM TARTRATE 10 MG TABLET PO PRN (21:58)
[2020-03-16 00:04] VITALS: BP 124/79
[2020-03-16] MEDS: LEVOTHYROXINE SODIUM 75 MCG TABLET PO SCH (07:02)
[2020-03-16 08:31] VITALS: BP 122/77
[2020-03-16] MEDS: MULTIVITAMINS WITH MINERALS, THERAPEUTIC TABLET PO SCH (08:46)
[2020-03-16] MEDS: ARIPiprazole 15 MG TABLET PO SCH (08:46)
[2020-03-16] MEDS: FOLIC ACID 1 MG TABLET PO SCH (08:46)
[2020-03-16] MEDS: THIAMINE 100 MG TABLET PO SCH ×2 (08:46→16:19)
[2020-03-16] MEDS: GuaiFENesin/D-METHORPHAN [SUGAR-FREE] 200-20MG/10 ML SYRUP UDCUP PO PRN ×2 (12:01→17:51)
[2020-03-16] MEDS: LORazepam 2 MG TABLET PO PRN (12:47)
[2020-03-16 17:34] VITALS: BP 129/79
[2020-03-16] MEDS ORDERED: NICOTINE POLACRILEX 4 MG LOZENGE PO PRN (18:30)
[2020-03-16] MEDS: ZOLPIDEM TARTRATE 10 MG TABLET PO PRN (21:24)
[2020-03-17 02:35] VITALS: BP 131/68
[2020-03-17] MEDS: LEVOTHYROXINE SODIUM 75 MCG TABLET PO SCH (05:45)
[2020-03-17] MEDS ORDERED: ARIPiprazole ER SUSPENSION 400 MG PRE-FILLED DUAL CHAMBER SYRINGE IM ONE (09:00)
[2020-03-17] MEDS: THIAMINE 100 MG TABLET PO SCH ×2 (09:12→16:53)
[2020-03-17] MEDS: ARIPiprazole 15 MG TABLET PO SCH (09:12)
[2020-03-17] MEDS: FOLIC ACID 1 MG TABLET PO SCH (09:12)
[2020-03-17] MEDS: MULTIVITAMINS WITH MINERALS, THERAPEUTIC TABLET PO SCH (09:12)
[2020-03-17 10:03] VITALS: BP 130/90
[2020-03-17] MEDS: GuaiFENesin/D-METHORPHAN [SUGAR-FREE] 200-20MG/10 ML SYRUP UDCUP PO PRN (10:38)
[2020-03-17 16:14] VITALS: BP 127/93
[2020-03-17] MEDS ORDERED: ARIP400S3 IM (16:23)
[2020-03-17] MEDS ORDERED: ARIP15TA2 PO (16:23)
[2020-03-18] MEDS ORDERED: ARIPiprazole ER SUSPENSION 400 MG PRE-FILLED DUAL CHAMBER SYRINGE IM ONE (09:00)
[2020-04-10] MEDS ORDERED: ARIPiprazole ER SUSPENSION 400 MG PRE-FILLED DUAL CHAMBER SYRINGE IM SCH (09:00)
[2020-04-15] MEDS ORDERED: ARIPiprazole ER SUSPENSION 400 MG PRE-FILLED DUAL CHAMBER SYRINGE IM SCH (09:00)
== END 2020-03-17 17:40 | disposition home or self-care (01) | DRG 885 ==
LOC: B2S 09:15
PROVIDERS: ADMIT Psychiatry & Neurology Psychiatry; ATTEND Psychiatry & Neurology Psychiatry
DX: F25.0 Schizoaffective disorder, bipolar type (principal); F17.200 Nicotine dependence, unspecified, uncomplicated; E66.9 Obesity, unspecified; E03.9 Hypothyroidism, unspecified; D72.829 Elevated white blood cell count, unspecified; D64.9 Anemia, unspecified; K59.00 Constipation, unspecified; Z59.9 Problem related to housing and economic circumstances, unspecified; Z91.19 Patient's noncompliance with other medical treatment and regimen; Z68.39 Body mass index [BMI] 39.0-39.9, adult
CPT/HCPCS: 83036; 84439; 84443; 86592; J0401

== ENCOUNTER 2020-04-24 10:40 | Emergency (ER) | payer MEDICARE, OTHER ==
[~2020-04-24] VITALS: Ht 160 cm; Wt 104.5 kg
[~2020-04-24 10:40] MED LIST changes: -ARIP10TA8 PO; +ARIP15TA2 PO; +ARIP400S3 IM
[2020-04-24] MEDS ORDERED: ALBUTEROL SULFATE HFA 90 MCG/PUFF 8 GM INHALER IH ONE (11:15)
[2020-04-24] MEDS ORDERED: HYDROCHLOROTHIAZIDE 25 MG TABLET PO ONE (11:15)
[2020-04-24 11:38] LABS: BASOPHILS % (AUTO) 0.8 % (0.0-2.0); EOSINOPHILS % (AUTO) 2.2 % (1.0-6.0); HEMATOCRIT 38.7 % (36-46); HEMOGLOBIN 12.3 g/dL (12.0-16.0); LYMPHOCYTES % (AUTO) 19.7 % (22.0-44.0); MEAN CORPUSCULAR HEMOGLOBIN 18.5 pg (26.0-34.0); MEAN CORPUSCULAR HGB CONC 31.7 G/dL (31.0-37.0); MEAN CORPUSCULAR VOLUME 58 fL (80-100); MONOCYTES # (AUTO) 1.2 K/uL (0.1-1.0); MONOCYTES % (AUTO) 7.7 % (2.0-9.0); NEUTROPHILS # (AUTO) 10.6 K/uL (1.8-7.7); NEUTROPHILS % (AUTO) 69.6 % (40.0-70.0); PLATELET COUNT (AUTO) 221 K/uL (150-450); RED BLOOD CELL COUNT(AUTO) 6.64 MIL/uL (4.00-5.20); RED CELL DISTRIBUTION WIDTH 17.2 % (11.5-14.5)
[2020-04-24 11:49] LABS: ANION GAP 7 mmol/L (8-16); CALCIUM, TOTAL 9.2 mg/dL (8.8-10.5); CARBON DIOXIDE 29 mmol/L (22-29); CHLORIDE 100 mmol/L (98-107); CREATININE 0.74 mg/dL (0.60-1.30); GLOMERULAR FILTR. RATE CALC > 60 mL/min (>60); GLUCOSE,RANDOM 115 mg/dL (70-110); POTASSIUM 3.6 mmol/L (3.5-5.1); SODIUM SERUM 136 mmol/L (136-145); UREA NITROGEN, BLOOD 8 mg/dL (7-18)
[2020-04-24 11:54] LABS: ALANINE AMINOTRANSFERASE 35 U/L (12-78); ALBUMIN 4.1 g/dL (3.4-5.0); ALKALINE PHOSPHATASE 98 U/L (46-116); ASPARTATE AMINOTRANSFERASE 18 U/L (15-37); BILIRUBIN,TOTAL 0.6 mg/dL (0.1-1.0); TOTAL PROTEIN, SERUM 7.3 g/dL (6.4-8.2)
[2020-04-24 12:03] LABS: B-TYPE NATRIURETIC PEPTIDE 7 pg/mL (0-100)
[2020-04-24 12:46] VITALS: BP 136/84
== END 2020-04-24 12:45 | disposition home or self-care (01) ==
LOC: EMS 10:45
DX: J44.1 Chronic obstructive pulmonary disease with (acute) exacerbation (principal); F10.10 Alcohol abuse, uncomplicated; R60.0 Localized edema; F17.210 Nicotine dependence, cigarettes, uncomplicated; F41.9 Anxiety disorder, unspecified; F31.9 Bipolar disorder, unspecified; F20.9 Schizophrenia, unspecified; Z90.89 Acquired absence of other organs; Z88.0 Allergy status to penicillin
CPT/HCPCS: 36415; 71045; 80053; 83880; 84484; 85025; 93005; 94640; 99285; 99406; G0480; J3535

== ENCOUNTER 2020-07-15 22:31 | Emergency (ER) | payer MEDICARE, OTHER ==
[~2020-07-15] VITALS: Ht 160 cm; Wt 97.7 kg
[2020-07-16] MEDS ORDERED: ALBUTEROL SULFATE HFA 90 MCG/PUFF 8 GM INHALER IH ONE (00:45)
[2020-07-16] MEDS ORDERED: MethylPREDNISolone SOD SUCC 125 MG/2 ML VIAL IVP ONE (00:45)
[2020-07-16 01:22] LABS: BASOPHILS % (AUTO) 1.2 % (0.0-2.0); EOSINOPHILS % (AUTO) 3.4 % (1.0-6.0); HEMATOCRIT 39.2 % (36-46); HEMOGLOBIN 12.5 g/dL (12.0-16.0); LYMPHOCYTES # (AUTO) 2.9 K/uL (1.0-4.8); LYMPHOCYTES % (AUTO) 26.9 % (22.0-44.0); MEAN CORPUSCULAR HGB CONC 31.9 G/dL (31.0-37.0); MEAN CORPUSCULAR VOLUME 60 fL (80-100); MONOCYTES # (AUTO) 0.9 K/uL (0.1-1.0); MONOCYTES % (AUTO) 8.6 % (2.0-9.0); NEUTROPHILS # (AUTO) 6.5 K/uL (1.8-7.7); NEUTROPHILS % (AUTO) 59.9 % (40.0-70.0); PLATELET COUNT (AUTO) 175 K/uL (150-450); RED BLOOD CELL COUNT(AUTO) 6.59 MIL/uL (4.00-5.20); RED CELL DISTRIBUTION WIDTH 16.5 % (11.5-14.5)
[2020-07-16 01:26] LABS: ANION GAP 6 mmol/L (8-16); CALCIUM, TOTAL 9.1 mg/dL (8.8-10.5); CARBON DIOXIDE 29 mmol/L (22-29); CHLORIDE 104 mmol/L (98-107); CREATININE 0.57 mg/dL (0.60-1.30); GLOMERULAR FILTR. RATE CALC > 60 mL/min (>60); GLUCOSE,RANDOM 104 mg/dL (70-110); POTASSIUM 3.6 mmol/L (3.5-5.1); SODIUM SERUM 139 mmol/L (136-145); UREA NITROGEN, BLOOD 6 mg/dL (7-18)
[2020-07-16 01:32] LABS: ALANINE AMINOTRANSFERASE 26 U/L (12-78); ALKALINE PHOSPHATASE 103 U/L (46-116); ASPARTATE AMINOTRANSFERASE 17 U/L (15-37); BILIRUBIN,TOTAL 0.7 mg/dL (0.1-1.0); CREATINE KINASE, TOTAL ONLY 36 U/L (26-192); TOTAL PROTEIN, SERUM 6.7 g/dL (6.4-8.2)
[2020-07-16 01:44] LABS: COVID AG,FIA SOURCE NASOPHARYNGEAL
[2020-07-16] MEDS ORDERED: PredniSONE 20 MG TABLET PO ONE (01:45)
[2020-07-16 01:54] LABS: B-TYPE NATRIURETIC PEPTIDE 10 pg/mL (0-100)
[2020-07-16 04:42] VITALS: BP 132/82
== END 2020-07-16 05:06 | disposition home or self-care (01) ==
LOC: EMS 22:35
DX: J45.909 Unspecified asthma, uncomplicated (principal); Z20.828 Contact with and (suspected) exposure to other viral communicable diseases; F41.9 Anxiety disorder, unspecified; F31.9 Bipolar disorder, unspecified; F20.9 Schizophrenia, unspecified; Z87.891 Personal history of nicotine dependence
CPT/HCPCS: 36415; 71045; 80053; 82550; 83880; 84484; 85025; 87426; 93005; 94640; 99285; J7512; U0003; J3535